=== PATIENT | male | born 1960 | race African-American/Black ===

== ENCOUNTER 2018-07-16 11:21 | Inpatient (IN) | payer MEDICARE, MEDICAID ==
[2018-07-16 12:36] LABS: #Basophils 0.1 thou/uL (0.0-0.2); #Eosinphils 0.1 thou/uL (0.0-0.7); #Lymphocytes 2.7 thou/uL (1.20-3.40); #Monocytes 0.5 thou/uL (0.11-0.59); %Basophils 0.8 % (0.0-1.0); %Eosinophils 0.8 % (0.0-10.0); %Lymphocytes 23.8 % (21.0-51.0); %Neutrophils 70.6 % (42.0-75.0); Hemoglobin 15.1 g/dL (14.0-18.0); Mean Corpuscular HGB CONC 32.2 g/dL (32.0-36.0); Mean Corpuscular Hemoglobin 26.9 pg (27.0-31.0); Mean Corpuscular Volume 83.5 fL (78.0-98.0); Mean Platelet Volume 8.6 fL (7.4-10.4); Platelet Count 210 thou/uL (130-400); RBC Distribution Width 13.1 % (11.5-14.5); Red Blood Cell (RBC) Count 5.62 mill/uL (4.70-6.10); White Blood Cell (WBC) Count 11.3 thou/uL (4.8-10.8)
[2018-07-16 12:37] LABS: Bilirubin Negative (Negative); Blood, Urine Negative (Negative); Clarity CLEAR (Clear); Glucose, Urine (Dipstick) >=1000 mg/dL (Negative); Leukocyte Negative (Negative); Nitrite Negative (Negative); Protein, Urine (Dipstick) Negative (Neg-Trace); Specific Gravity, Urine 1.027 (1.002-1.036)
--- NOTE | 2018-07-16 12:42 | RAD ---
Exam: Chest one view HISTORY:Emergency exam, hyperglycemia, dizziness Comparison: 01/31/2015 FINDINGS: Lungs: Mild interstitial prominence, perihilar regions, bilaterally Cardiac silhouette: Normal size Pulmonary vessels: Mild central prominence Pleural Spaces: No significant effusion Pneumothorax: None Metallic clips overlie the right chest. Osseous abnormalities: None of acuity. IMPRESSION: Bilateral perihilar interstitial prominence with mild enlargement of central pulmonary va sculature. This may represent fluid overload. Correlate clinically.
[2018-07-16 13:04] LABS: ALT (SGPT) 50 U/L (8-55); AST (SGOT) 30 U/L (5-34); Albumin 4.3 g/dL (3.5-5.0); Alkaline Phosphatase 178 U/L (40-150); Anion Gap 14 mmol/L (10-20); BUN (Urea Nitrogen) 23 mg/dL (8.4-25.7); Bilirubin, Total 0.4 mg/dL (0.2-1.2); CK (CPK) 338 U/L (30-200); Calc. Creatinine Clearance 0 mL/min (70-130); Calcium 10.2 mg/dL (7.8-10.44); Carbon Dioxide 26 mmol/L (22-29); Chloride 97 mmol/L (98-107); Estimated GFR-MDRD 41; Globulin 3.6 g/dL (2.4-3.5); Glucose 522 mg/dL (70-105); Lipase 43 U/L (8-78); Potassium 4.7 mmol/L (3.5-5.1); Protein, Total 7.9 g/dL (6.0-8.3); Sodium 132 mmol/L (136-145)
[2018-07-16] MEDS ORDERED: Aspirin Chewable 81 MG TAB ONE (15:31)
[2018-07-16 16:43] LABS: Troponin I Less than 0.010 ng/mL (< 0.028)
[2018-07-16 17:49] VITALS: BMI 32.5
[2018-07-16] MEDS ORDERED: Dextrose 5% in Water 1,000 ML IV PRN (18:58)
[2018-07-16] MEDS ORDERED: Dextrose 50% Abboject 50 ML SYRINGE SLOW IVP PRN (18:58)
[2018-07-16 19:17] LABS: Hemoglobin A1c 12.7 % (4.0-6.0)
[2018-07-16] MEDS ORDERED: Acetaminophen 325 MG TAB PO PRN (20:06)
[2018-07-16] MEDS ORDERED: Ondansetron PF 4 MG/2 ML Vial IVP PRN (20:06)
[2018-07-16] MEDS: tiZANidine HCl 4 MG TAB PO SCH (20:11)
[2018-07-16] MEDS: HYDROcodone/Acetaminophen 10/325 mg Tablet PO PRN (20:11)
[2018-07-16] MEDS: Gabapentin 300 MG CAP PO SCH (20:12)
[2018-07-16] MEDS: Atorvastatin Calcium 40 MG TAB PO SCH (20:12)
[2018-07-16 20:14] LABS: Troponin I Less than 0.010 ng/mL (< 0.028)
[2018-07-16] MEDS: Famotidine 20 MG TAB PO SCH (20:17)
[2018-07-16] MEDS: Nicotine 14 MG PATCH TD SCH (20:17)
[2018-07-16] MEDS: HumaLOG 300 UNITS/3 ML VIAL SC PRN (21:04)
--- NOTE | 2018-07-16 22:20 | HP ---
PRIMARY CARE PHYSICIAN: Dr. Flanagan with [facility]. CHIEF COMPLAINT: Lightheadedness, chest pain, and shortness of breath. HISTORY OF PRESENT ILLNESS: Mr. Jerez is a 58-year-old male with past medical history of hypertension, hyperlipidemia, and a newly diagnosed diabetes mellitus earlier this week. He states he was recently seen at [facility] ER on Friday due to the same symptoms. It was found at that time that the patient had a blood sugar of over 500 and was newly diagnosed with diabetes mellitus. He was started on metformin 500 mg b.i.d. and then later discharged home with close outpatient followup with his PCP, Dr. Flanagan. The patient states that he has not been able to see his PCP yet, however, his symptoms worsened over the last 24 hours. He states that he has some mild left-sided chest pain along with some mild shortness of breath. He states that this comes and goes and he has also noticed some lightheadedness, some urinary frequency, some diaphoresis, and some excessive thirst. He was seen at [facility] ER earlier today and was found to have a blood sugar of over 522. This had improved to 225 just with IV fluid normal saline. Creatinine was also noted to be elevated at 2.02. Troponins were obtained and found to be less than 0.010 x2. Urinalysis was also obtained and found urine glucose greater or equal to 1000, otherwise unremarkable. Beta-hydroxybutyrate was normal at 0.19. The patient's A1c was checked and found to be elevated at 12.7. He underwent a chest x-ray due to his dizziness and his shortness of breath, however, it showed bilateral perihilar interstitial prominence with mild enlargement of central pulmonary vasculature. This may represent fluid overload. Correlate clinically. The patient also reports some right arm pain and swelling that has been going on for the last several months. He was attacked by 2 Pit bulls that had caused significant injury to his right upper extremity and he had required surgery, which he had underwent his last surgery back in January. He states he usually takes gabapentin and [place] at home for his pain, however, this has been progressively worsening over the last 2 to 3 weeks. The patient reports a family history of heart failure and heart disease, however, the patient denies being worked up for this in the past. It was determined at this time the patient be admitted under observation, placed on telemetry and observed overnight, stress test and echocardiogram ordered along with right upper extremity Doppler to rule out PE. REVIEW OF SYSTEMS: All other systems reviewed and found to be negative unless mentioned in the HPI. PAST MEDICAL HISTORY: Significant for diabetes mellitus type 2, hyperlipidemia, and hypertension. PAST SURGICAL HISTORY: Right elbow, right hand and back. SOCIAL HISTORY: Denies any alcohol, tobacco, or illicit drug use. ALLERGIES: NONE. CURRENT HOME MEDICATIONS: 1. Amlodipine 10 mg p.o. daily. 2. Aspirin 81 mg daily. 3. Atorvastatin 40 mg oral daily. 4. Centrum multivitamin daily. 5. Chlorthalidone 25 mg daily. 6. Gabapentin 300 mg t.i.d. 7. Tizanidine 4 mg p.o. b.i.d. 8. [place] 10/325 mg p.o. t.i.d. p.r.n. pain. 9. Metformin 500 mg p.o. b.i.d. PHYSICAL EXAMINATION: VITAL SIGNS: Blood pressure 155/96, pulse 77, respirations 18, temp 97.4 degrees Fahrenheit, O2 saturations 100% on room air. GENERAL: The patient is awake, alert, and oriented x3. He is lying comfortably in bed and in no acute distress. HEENT: Atraumatic, normocephalic. Pupils are round and reactive to light. Extraocular muscles intact. Moist mucous membranes noted. NECK: Soft, supple. No JVD. Trachea midline. CARDIOVASCULAR: Positive S1 and S2. Regular rate and rhythm. No murmur auscultated. RESPIRATORY: Clear to auscultation bilaterally. No wheezes, rales, or rhonchi. ABDOMEN: Soft, nontender. Bowel sounds present. MUSCULOSKELETAL: Strength 5+ on the left, however, 4+ strength on the right. Moves all extremities equal. Chronic scarring from multiple wounds noted on right upper extremity. He has a finger splint on the right 5th digit. Swelling noted in the right upper extremity as well and tenderness to palpation noted throughout right upper extremity. NEUROLOGIC: Cranial nerves 2 through 12 grossly intact. No focal deficits noted. Speech intact and normal. Gait not assessed. SKIN: As above. Chronic healed wounds on his right upper extremity along with right lower extremity. No acute ulceration or rashes noted. PSYCHIATRIC: Good mood and affect. LABORATORY DATA: WBC 11.3, RBC 5.62, hemoglobin 15.1, platelet 210. Sodium 132, potassium 4.7, anion gap 14, BUN 23, creatinine 2.02, estimated GFR 41. Glucose on admission was 522, trending down to 225. Hemoglobin A1c 12.7. Creatine kinase 338. Troponin less than 0.010 x2. Urinalysis shows greater or equal to 1000 glucose, otherwise unremarkable. Beta-hydroxybutyrate normal at 0.19. DIAGNOSTIC IMAGING: Chest x-ray showed bilateral perihilar interstitial prominence with mild enlargement of central pulmonary vasculature, this may represent fluid overload. ASSESSMENT/PLAN: 1. Elevated blood sugars with a newly diagnosed diabetes mellitus and is uncontrolled with oral metformin. The patient's A1c noted to be elevated at 12.7. This is also unlikely secondary to being newly diagnosed and recently started on metformin. He will be started on a long-acting insulin including Lantus 10 mg q.a.m. in the morning, metformin will be held during his hospital visit and he will be started on insulin sliding scale with meals with frequent Accu-Cheks. The patient will likely require long-acting insulin along with metformin and possibly insulin sliding scale when he is discharged. Blood sugars noted to be over 500 on admission, however, are currently trended down nicely currently 225. 2. Chest pain and shortness of breath, the patient will be monitored on the telemonitor. At this time, a stress test and echocardiogram ordered for the morning. Troponin so far negative x2. He will be continued on his home medications at this time. 3. Chronic wounds to right upper extremity, the patient has a history of a dog attack in the past, he has noticed some worsening swelling and pain. Therefore, we will check a Doppler of his right upper extremity to rule out deep venous thrombosis. 4. History of hypertension. The patient will be continued on home regimen. 5. Hyperlipidemia. Continue on patient's home statin. 6. Gastrointestinal and deep venous thrombosis prophylaxis will be started. 7. Code status: Full code. DISPOSITION: Pending further workup and clinical findings. Job ID: [id number]
--- NOTE | 2018-07-16 22:26 | ULT ---
Right upper extremity venous duplex ultrasound including color and spectral Doppler imaging: HISTORY: Right upper extremity swelling. Extensive prior injury to arm with multiple prior surgeries. FINDINGS: The internal jugular, subclavian, axillary, brachial, and radial and ulnar veins are visualized and s how phasic flow with normal compressibility normal augmentation. The cephalic vein is visualized in the upper portion of the arm but is not seen below the level of the elbow. The visualized right basil ic vein appears unremarkable. In the region of the upper portion of the forearm, there is a somewhat oblong structure measuring 1 cm x 3.4 cm which contains some minimal flow within it. I'm not certain as to the exact etiology of this, conceivably it could represent a dilated venous varix with some thrombus within it, it could represent some other type of soft tissue mass. The anatomy is distorted in this region because of extensive prior surgery. In addition there is a focal 1.0 x 1.7 cm area of altered echogenicity in the region of focal palpabl e swelling of the medial portion of the upper arm. This could possibly represent a hematoma although some other type of soft tissue mass within muscle tissue is a consideration. IMPRESSION: No evidence for deep venous thrombosis. Visualized basilic and cephalic veins are patent and demonstr ate phasic flow. Abnormal structure in the upper portion of the forearm which has some vascular flow within it, I am n ot certain as to the etiology of this. It could possibly represent thrombus within a dilated venous varix or some other soft tissue structure. 1 x 1.7 cm diameter "mass" in the medial aspect of the lower portion of the upper arm above the level of the elbow accounting for the palpable finding. This appears to be within muscle tissue and could conceivably represent a hematoma or some other mass. Evaluation is difficult because of distortion of the anatomy from prior trauma and surgeries. Follow-up MRI examination of the humerus and forearm should be considered for further assessment of t hese regions with and without IV contrast.
[2018-07-17] MEDS: HYDROcodone/Acetaminophen 10/325 mg Tablet PO PRN ×2 (04:26→19:49)
[2018-07-17 05:09] LABS: #Basophils 0.1 thou/uL (0.0-0.2); #Eosinphils 0.2 thou/uL (0.0-0.7); #Lymphocytes 3.5 thou/uL (1.20-3.40); #Monocytes 0.6 thou/uL (0.11-0.59); #Neutrophils 6.4 thou/uL (1.40-6.50); %Basophils 0.7 % (0.0-1.0); %Lymphocytes 32.5 % (21.0-51.0); %Monocytes 5.4 % (0.0-10.0); %Neutrophils 59.5 % (42.0-75.0); Hemoglobin 13.9 g/dL (14.0-18.0); Mean Corpuscular HGB CONC 32.4 g/dL (32.0-36.0); Mean Corpuscular Hemoglobin 26.5 pg (27.0-31.0); Mean Platelet Volume 8.4 fL (7.4-10.4); Platelet Count 202 thou/uL (130-400); RBC Distribution Width 12.9 % (11.5-14.5); Red Blood Cell (RBC) Count 5.24 mill/uL (4.70-6.10); White Blood Cell (WBC) Count 10.8 thou/uL (4.8-10.8)
[2018-07-17 05:24] LABS: Anion Gap 12 mmol/L (10-20); BUN (Urea Nitrogen) 17 mg/dL (8.4-25.7); Calc. Creatinine Clearance 86 mL/min (70-130); Calcium 9.6 mg/dL (7.8-10.44); Carbon Dioxide 23 mmol/L (22-29); Chloride 102 mmol/L (98-107); Estimated GFR-MDRD 71; Glucose 276 mg/dL (70-105); Potassium 3.8 mmol/L (3.5-5.1); Sodium 133 mmol/L (136-145)
[2018-07-17] MEDS: HumaLOG 300 UNITS/3 ML VIAL SC PRN ×4 (06:12→21:36)
[2018-07-17] MEDS: tiZANidine HCl 4 MG TAB PO SCH ×2 (07:47→19:48)
[2018-07-17] MEDS: Gabapentin 300 MG CAP PO SCH ×3 (07:47→19:49)
[2018-07-17] MEDS: Amlodipine 10 MG TAB PO SCH (07:48)
[2018-07-17] MEDS: Enoxaparin Sodium 40 MG/0.4 ML SYRINGE SC SCH (07:48)
[2018-07-17] MEDS: Aspirin 81 mg Enteric Coated Tablet PO SCH (07:48)
[2018-07-17] MEDS: Insulin Glargine 10 UNITS in Pre-Filled Syringe SC SCH ×2 (08:55→11:29)
[2018-07-17] MEDS: Chlorthalidone 25 MG TAB PO SCH ×2 (08:55→11:30)
[2018-07-17] MEDS ORDERED: ADENOSINE 60 MG/20 ML VIAL ONE (09:40)
--- NOTE | 2018-07-17 11:31 | NM ---
EXAM: Nuclear medicine cardiac SPECT with EF and wall motion: HISTORY: Chest pain, hypertension, diabetes mellitus, dyslipidemia Adenosine sestamibi study is performed. Patient was injected with 29.3 mCi technetium 99m sestamibi intravenously for stress images and patie nt was injected with 10.3 mCi technetium 99m sestamibi intravenously for resting images. Multiple SPECT images are performed in the short axis, vertical long axis, and horizontal long axis. FINDINGS: No evidence for ischemia. Evidence for posterior wall scar. TID:1.16 LHR:0.31 EDV:126 mL EF:36% Wall motion:Global hypokinesis IMPRESSION: Evidence for posterior wall scar. No scan evidence for ischemia. Low ejection fraction at 36% Global hypokinesis
--- NOTE | 2018-07-17 13:52 | PRG ---
DATE OF SERVICE: 07/17/2018 CHIEF COMPLAINT: Lightheadedness, chest pain, and shortness of breath. HISTORY OF PRESENT ILLNESS: This is a 58-year-old male with history of hypertension, hyperlipidemia, and diabetes mellitus type 2, who came for lightheadedness and chest discomfort. SUBJECTIVE: The patient is seen and evaluated at bedside. He has no acute complaints. Per nurse, abnormal stress test. No other acute events. REVIEW OF SYSTEMS: All systems are reviewed and negative except for the ones mentioned above. PHYSICAL EXAMINATION: VITAL SIGNS: Blood pressure 142/94, pulse 80, respirations 16, oxygen saturation 99% on room air, and temperature 97.5 Fahrenheit. GENERAL: No acute distress. He is awake, alert, and oriented x3. HEAD AND NECK: Pupils are equally reactive to light. Extraocular muscles are intact. Mucous membranes are moist. Neck is supple. CARDIOVASCULAR: Rhythm and rate are regular. No audible murmurs, rubs, or gallops. PULMONARY: Clear to auscultation bilaterally. No wheezes, rhonchi, or crackles. ABDOMEN: Soft, nontender, and nondistended. Positive bowel sounds. EXTREMITIES: No edema. Pulses are symmetric. Range of motion is intact. Right upper extremity scars. SKIN: Scars as above. Normal moist. NEUROLOGIC: Cranial nerves 2 through 12 are grossly intact. Deep tendon reflexes are normoreflexic. Muscle tone is normal. Muscle strength is 5/5. LABORATORY DATA: Laboratory abnormalities: Sodium 133 and glucose 255. Hemoglobin A1c is 12.7. EKG is reviewed. Stress test result is reviewed. CURRENT MEDICATIONS: Reviewed. ASSESSMENT AND PLAN: 1. Abnormal stress test: Scar in the posterior wall, concerning for coronary artery disease. Presumptive previous troponin elevation, but negative x2 on this hospitalization. Possible old myocardial infarction. Cardiology has been consulted. Likely need left heart catheterization. Echocardiogram is pending. 2. Hyperglycemic syndrome: Resolved. Mild hyperglycemia. Continue sliding scale insulin. Hemoglobin A1c is 12.7%. 3. Chest pain: Resolved. Possible anginal type chest pain. See above. 4. Newly diagnosed chronic systolic and diastolic heart failure: Currently compensated. Cautious intravenous fluids. Cardiology consulted for evaluation. 5. Chronic right upper extremity scars. 6. Essential hypertension: Currently at goal. We will add beta blockers to his blood pressure regimen. 7. Hyperlipidemia: Continue statin. 8. Mild acute hyponatremia: Likely secondary to hyperglycemia. Continue cautious intravenous fluids. 9. Obesity with body mass index of 31: Lifestyle modification changes recommended. 10. Code status: Full code. 11. Core measures: Lovenox. 12. Disposition: Medical/Surgical Unit on telemetry. 13. Prognosis: Guarded. 14. Clinical status: Guarded. 15. Expected discharge: To be determined based on academic manager's recommendations. TOTAL TIME SPENT: 32 minutes. Job ID: [id number]
[2018-07-17] MEDS: Carvedilol 3.125 MG TAB PO SCH (17:07)
[2018-07-17] MEDS: Nicotine 14 MG PATCH TD SCH (19:47)
[2018-07-17] MEDS: Famotidine 20 MG TAB PO SCH (19:48)
[2018-07-17] MEDS: Atorvastatin Calcium 40 MG TAB PO SCH (19:48)
[2018-07-17] MEDS: Ondansetron ODT 4 MG TAB PO PRN (19:49)
[2018-07-17] MEDS ORDERED: Communication Order-Pharmacy FS SCH (20:45)
--- NOTE | 2018-07-18 00:55 | CON ---
DATE OF CONSULTATION: HISTORY: Dre Jerez is a pleasant 58-year-old black male who has recently diagnosed diabetes and has problems with blood sugar over 500. It also has been found that over the last 3-4 years that he has episodes of chest heaviness extending all the way across his chest. This will occur at rest and lasts for several minutes. He has episodes approximately 2 times per week. These never seem to be related to exertion. At times, he may have mild pleuritic pain with this. With this history, he underwent adenosine Cardiolite testing today. This revealed global hypokinesis with ejection fraction of 36%. He was found to have a posterior wall scar, but no evidence of ischemia. PAST MEDICAL HISTORY: Diabetes, hypercholesterolemia, hypertension. Dog bite with rhabdomyolysis and acute kidney injury. MEDICATIONS: 1. Amlodipine 10 daily. 2. Aspirin 81 daily. 3. Atorvastatin 40 daily. 4. Multivitamin daily. 5. Chlorthalidone 25 daily. 6. Gabapentin 300 mg t.i.d. 7. Tizanidine 4 mg b.i.d. 8. [place] p.r.n. 9. Metformin 500 mg b.i.d.. ALLERGIES: NONE. SOCIAL HISTORY: Smoked 1/2 pack per day, but stopped in March. He does not drink. PAST SURGICAL HISTORY: Include multiple right arm operations after a dog attack. FAMILY HISTORY: Negative for coronary artery disease. REVIEW OF SYSTEMS: A 12-point review of systems is unremarkable. PHYSICAL EXAMINATION: VITAL SIGNS: Blood pressure 138/102, pulse of 87. HEENT: PERRL. NECK: Supple. CHEST: Clear. CARDIAC: S1 and S2 normal without any S3, S4, or murmurs. ABDOMEN: Normal bowel sounds without tenderness or organomegaly. EXTREMITIES: Revealed no clubbing, cyanosis, or edema. He does have significant scarring of his right arm as well as some contractures of his right fingers. NEUROLOGIC: Grossly intact. SKIN: Warm and dry. LABORATORY DATA: EKG reveals probable ectopic atrial rhythm with occasional PVC. There also is evidence of possible inferior infarction. Cardiac enzymes are unremarkable. Sodium 138, potassium 3.8, chloride 102, carbon dioxide 23, BUN 17, creatinine 1.27. On admission, his creatinine was 2.02. Alkaline phosphatase 178. CK 338. Glucose on admission was greater than 550. IMPRESSION: 1. Abnormal Cardiolite with fixed inferior wall defect, but no evidence of ischemia. Also on EKG, he has changes consistent with inferior infarction. 2. Resting chest heaviness. 3. Left ventricular dysfunction with ejection fraction of 36% on Cardiolite. 4. History of acute kidney injury with a creatinine of 2.02 at the time of admission. It also is of note that in 2014 when he was admitted with dog bite that he had rhabdomyolysis and his creatinine went up to 3.64. 5. Hypertension, poorly controlled. 6. Diabetes, poorly controlled. 7. Hyperlipidemia. 8. Former smoker. PLAN: With possible coronary artery disease, I would discontinue the nicotine patch. It was recommended that he undergo cardiac catheterization. Risks of this were discussed including , myocardial infarction, CVA, transfusion, limb loss, renal loss, allergic reaction to the dye, vascular injury, kidney damage, etc. We discussed stenting and additional risk of , myocardial infarction, emergent CABG, restenosis, stent thrombosis, vessel perforation, etc. He does not have any upcoming surgeries. Never had gastrointestinal bleeding or stroke. Overall it is recommended that a drug-eluting stent be placed if needed. Echocardiogram will also be performed to further evaluate ejection fraction of 36% seen on Cardiolite scan. Job ID: [id number] [id number]
[2018-07-18] MEDS: Insulin Glargine 10 UNITS in Pre-Filled Syringe SC SCH (05:57)
[2018-07-18] MEDS: Chlorthalidone 25 MG TAB PO SCH (05:57)
[2018-07-18] MEDS: Enoxaparin Sodium 40 MG/0.4 ML SYRINGE SC SCH (05:57)
[2018-07-18] MEDS: Amlodipine 10 MG TAB PO SCH (05:59)
[2018-07-18] MEDS: Aspirin 81 mg Enteric Coated Tablet PO SCH (05:59)
[2018-07-18] MEDS: Gabapentin 300 MG CAP PO SCH ×4 (05:59→20:14)
[2018-07-18] MEDS: tiZANidine HCl 4 MG TAB PO SCH ×2 (05:59→20:14)
[2018-07-18] MEDS: Carvedilol 3.125 MG TAB PO SCH ×2 (05:59→16:47)
[2018-07-18 07:25] LABS: Anion Gap 14 mmol/L (10-20); BUN (Urea Nitrogen) 19 mg/dL (8.4-25.7); Calc. Creatinine Clearance 71 mL/min (70-130); Carbon Dioxide 23 mmol/L (22-29); Cardiac Risk 3.9 (Less than 4.5); Chloride 100 mmol/L (98-107); Cholesterol 125 mg/dl (< 200 Desired); Estimated GFR-MDRD 57; Glucose 320 mg/dL (70-105); HDL Cholesterol 32 mg/dL (>60 Neg Risk); LDL Cholesterol, Calculated 70 mg/dL; Potassium 4.6 mmol/L (3.5-5.1); Sodium 132 mmol/L (136-145); Triglycerides 114 mg/dL (Less than 150)
[2018-07-18] MEDS: Ondansetron ODT 4 MG TAB PO PRN ×2 (07:47→16:47)
[2018-07-18] MEDS: HYDROcodone/Acetaminophen 10/325 mg Tablet PO PRN ×2 (07:47→16:47)
[2018-07-18 07:51] LABS: #Basophils 0.1 thou/uL (0.0-0.2); #Eosinphils 0.2 thou/uL (0.0-0.7); #Lymphocytes 3.3 thou/uL (1.20-3.40); #Monocytes 0.6 thou/uL (0.11-0.59); #Neutrophils 5.5 thou/uL (1.40-6.50); %Basophils 0.6 % (0.0-1.0); %Lymphocytes 34.6 % (21.0-51.0); %Monocytes 6.1 % (0.0-10.0); %Neutrophils 56.7 % (42.0-75.0); Hemoglobin 15.7 g/dL (14.0-18.0); Mean Corpuscular HGB CONC 32.3 g/dL (32.0-36.0); Mean Corpuscular Hemoglobin 26.2 pg (27.0-31.0); Mean Corpuscular Volume 81.1 fL (78.0-98.0); Mean Platelet Volume 8.8 fL (7.4-10.4); Platelet Count 214 thou/uL (130-400); RBC Distribution Width 13.3 % (11.5-14.5); White Blood Cell (WBC) Count 9.6 thou/uL (4.8-10.8)
[2018-07-18] MEDS ORDERED: Insulin Glargine 15 UNITS in Pre-Filled Syringe 1 EACH SC SCH (14:33)
--- NOTE | 2018-07-18 15:07 | PRG ---
DATE OF SERVICE: 07/18/2018 CHIEF COMPLAINT: Lightheadedness, chest pain, shortness of breath. HISTORY OF PRESENT ILLNESS: This is a 58-year-old male with a history of hypertension, hyperlipidemia, diabetes mellitus type 2, who came to the emergency room for lightheadedness and chest discomfort. SUBJECTIVE: The patient is seen and evaluated at bedside. He has no chest pain. He denies any shortness of breath. He is undergoing a left heart catheterization today. Per nurse, no other acute events. REVIEW OF SYSTEMS: All systems are reviewed and negative except for the ones mentioned above. PHYSICAL EXAMINATION: VITAL SIGNS: Blood pressure 129/85, pulse 68, respirations 16, oxygen saturation 98% on room air, temperature 97.9 Fahrenheit. GENERAL: He appears in no distress. Awake, alert, and oriented x3. HEAD AND NECK: Pupils are equal and reactive to light. Extraocular muscles are intact. Mucous membranes are moist. Neck is supple. CARDIOVASCULAR: Rhythm and rate are regular. No audible murmurs, rubs, or gallops. PULMONARY: Clear to auscultation bilaterally. No wheezes, rhonchi, or crackles. ABDOMEN: Soft, nontender, nondistended, positive bowel sounds. EXTREMITIES: No palpable edema. Pulses symmetric. Range of motion is intact. Right upper extremity, deep scars. SKIN: Scars as above. Normal moist. NEUROLOGIC: Cranial nerves 2 through 12 are grossly intact. Deep tendon reflexes are normoreflexic. LABORATORY DATA: Laboratory abnormalities: Creatinine 1.53. Sodium 132. Glucose 293. CURRENT MEDICATIONS: Reviewed. ASSESSMENT AND PLAN: 1. Abnormal stress test: Echocardiogram confirming ejection fraction of 30% to 35%. The patient has undergone left heart catheterization, suspicious for severe coronary artery disease. Cardiology is following. 2. Hyperglycemic syndrome: Continue titrating insulin. I increased the Lantus to 15 units per day. 3. Chest pain: Resolved. See above. Left heart catheterization today. 4. Newly diagnosed chronic systolic and diastolic heart failure: Currently compensated. 5. Cardiomyopathy: Suspected ischemic. Left heart catheterization today. 6. Essential hypertension: Currently at goal. 7. Chronic right upper extremity scars. 8. Chronic hyperlipidemia: Continue statins. 9. Mild acute hyponatremia: Sodium stable. Monitor. 10. Acute kidney injury: Suspect prerenal. Creatinine was improving, but slightly worsened today. Continue to monitor closely. 11. Obesity with BMI 31: Lifestyle modification changes recommended. CODE STATUS: Full code. CORE MEASURES: Lovenox. DISPOSITION: Medical/surgical unit on telemetry. Change to inpatient status. PROGNOSIS: Guarded. CLINICAL STATUS: Guarded. EXPECTED DISCHARGE: To be determined based on left heart catheterization findings. TOTAL TIME SPENT: 30 minutes. Job ID: [id number]
[2018-07-18] MEDS: HumaLOG 300 UNITS/3 ML VIAL SC PRN ×2 (16:50→21:28)
[2018-07-18] MEDS: Atorvastatin Calcium 40 MG TAB PO SCH (20:14)
[2018-07-18] MEDS: Famotidine 20 MG TAB PO SCH (20:14)
[2018-07-18] MEDS ORDERED: Docusate 100 MG CAP PO PRN (20:54)
[2018-07-18] MEDS ORDERED: Mag-Al 1200 mg/1200 mg/30 ML UDCUP PO PRN (20:54)
[2018-07-18] MEDS: Senokot S 8.6-50 MG TAB PO SCH (21:27)
[2018-07-18] MEDS ORDERED: Nitroglycerin 0.4 MG TAB (25 Tab Bottle) SL PRN (22:18)
[2018-07-19] MEDS: HumaLOG 300 UNITS/3 ML VIAL SC PRN ×4 (06:01→21:17)
[2018-07-19 06:30] LABS: Hemoglobin 14.4 g/dL (14.0-18.0); Mean Corpuscular HGB CONC 33.2 g/dL (32.0-36.0); Mean Corpuscular Hemoglobin 27.2 pg (27.0-31.0); Mean Corpuscular Volume 81.9 fL (78.0-98.0); Mean Platelet Volume 8.7 fL (7.4-10.4); Platelet Count 199 thou/uL (130-400); White Blood Cell (WBC) Count 8.3 thou/uL (4.8-10.8)
[2018-07-19 06:46] LABS: Anion Gap 13 mmol/L (10-20); BUN (Urea Nitrogen) 24 mg/dL (8.4-25.7); Calc. Creatinine Clearance 77 mL/min (70-130); Calcium 9.5 mg/dL (7.8-10.44); Carbon Dioxide 23 mmol/L (22-29); Chloride 100 mmol/L (98-107); Estimated GFR-MDRD 63; Glucose 360 mg/dL (70-105); Magnesium 2.4 mg/dL (1.6-2.6); Potassium 4.2 mmol/L (3.5-5.1); Sodium 132 mmol/L (136-145)
[2018-07-19] MEDS ORDERED: Carvedilol 6.25 MG TAB PO SCH (08:00)
[2018-07-19] MEDS: Aspirin 81 mg Enteric Coated Tablet PO SCH (08:59)
[2018-07-19] MEDS: Gabapentin 300 MG CAP PO SCH ×3 (09:00→20:05)
[2018-07-19] MEDS: Enoxaparin Sodium 40 MG/0.4 ML SYRINGE SC SCH (09:00)
[2018-07-19] MEDS ORDERED: Amlodipine 5 MG TAB PO SCH (09:00)
[2018-07-19] MEDS: Senokot S 8.6-50 MG TAB PO SCH ×2 (09:00→20:06)
[2018-07-19] MEDS: Ketoconazole 2% Cream 15 gm Tube TOP SCH (09:01)
[2018-07-19] MEDS: tiZANidine HCl 4 MG TAB PO SCH ×2 (09:01→20:05)
--- NOTE | 2018-07-19 13:43 | PRG ---
DATE OF SERVICE: 07/19/2018 CHIEF COMPLAINT: Lightheadedness, chest pain, shortness of breath. HISTORY OF PRESENT ILLNESS: A 58-year-old male with history of hypertension, hyperlipidemia, diabetes mellitus type 2, who came to the emergency department for lightheadedness and chest discomfort. SUBJECTIVE: The patient seen and evaluated at bedside. He has no new complaints. Per nurse, no acute events overnight. REVIEW OF SYSTEMS: All systems are reviewed and negative except for the ones mentioned above. PHYSICAL EXAMINATION: VITAL SIGNS: Blood pressure 130/88, pulse 78, respirations 18, oxygen saturation 93% on room air, temperature 98 Fahrenheit. GENERAL: No distress. Awake, alert, oriented x3. HEAD AND NECK: Pupils are equal, reactive to light. Extraocular muscles are intact. Mucous membranes are moist. NECK: Supple. CARDIOVASCULAR: Rhythm and rate are regular. No audible murmurs, rubs, or gallops. PULMONARY: Clear to auscultation bilaterally. No wheezes, rhonchi, or crackles. ABDOMEN: Soft, nontender, nondistended. Positive bowel sounds. EXTREMITIES: No palpable edema. Pulses are symmetric. Range of motion is intact. Right upper extremity, deep scars. SKIN: Scars as above. Normal moist. NEUROLOGIC: Cranial nerves 2 through 12 are grossly intact. Deep tendon reflexes are normoreflexic. LABORATORY DATA: Glucose 360, creatinine is 1.4, sodium 132. CBC normal. CURRENT MEDICATIONS: Reviewed. ASSESSMENT AND PLAN: 1. Abnormal stress test for left heart catheterization on Friday per cardiology's recommendation. 2. Hyperglycemic syndrome. Continue titrating Lantus with caution and sliding scale. 3. Chest pain, resolved. See above. 4. Newly diagnosed chronic systolic and diastolic heart failure, currently compensated. 5. Cardiomyopathy, suspect ischemic. Left heart catheterization on Friday. 6. Essential hypertension, currently at goal. 7. Chronic right upper extremity scars. 8. Chronic hyperlipidemia. Continue current treatment. 9. Mild acute hyponatremia, stable sodium level. a. Continue to monitor. 10. Acute kidney injury, prerenal, improving. Closely monitoring after left heart catheterization. 11. Obesity with BMI 31. Lifestyle modification changes recommended. CODE STATUS: Full code. CORE MEASURE: Lovenox. DISPOSITION: Medical/surgical unit on telemetry. PROGNOSIS: Guarded. CLINICAL STATUS: Guarded. EXPECTED DISCHARGE: To be determined based on left heart catheterization findings. TOTAL TIME SPENT: 28 minutes. Job ID: [id number]
[2018-07-19] MEDS ORDERED: Sodium Chloride 0.9% 1,000 ML IV SCH (16:30)
[2018-07-19] MEDS: Carvedilol 6.25 MG TAB PO SCH (16:42)
[2018-07-19] MEDS: Famotidine 20 MG TAB PO SCH (20:06)
[2018-07-19] MEDS: Atorvastatin Calcium 40 MG TAB PO SCH (20:07)
[2018-07-20] MEDS ORDERED: Sodium Chloride 0.9% 1,000 ML IV SCH ×2 (06:00→07:50)
[2018-07-20] MEDS: tiZANidine HCl 4 MG TAB PO SCH ×2 (06:03→21:20)
[2018-07-20] MEDS: Gabapentin 300 MG CAP PO SCH ×3 (06:03→21:20)
[2018-07-20] MEDS: Carvedilol 6.25 MG TAB PO SCH ×2 (06:03→17:25)
[2018-07-20] MEDS: Senokot S 8.6-50 MG TAB PO SCH ×2 (06:03→21:21)
[2018-07-20] MEDS: Aspirin 81 mg Enteric Coated Tablet PO SCH (06:04)
[2018-07-20 06:07] LABS: Anion Gap 13 mmol/L (10-20); BUN (Urea Nitrogen) 26 mg/dL (8.4-25.7); Calc. Creatinine Clearance 69 mL/min (70-130); Calcium 9.5 mg/dL (7.8-10.44); Carbon Dioxide 22 mmol/L (22-29); Chloride 104 mmol/L (98-107); Estimated GFR-MDRD 55; Glucose 296 mg/dL (70-105); Sodium 135 mmol/L (136-145)
[2018-07-20] MEDS ORDERED: Heparin 10,000 UNITS/1 ML VIAL ONE (06:32)
[2018-07-20] MEDS ORDERED: Midazolam HCl 2 mg/2 ml Vial ONE (07:07)
[2018-07-20] MEDS ORDERED: Fentanyl 100 MCG/2 ML VIAL ONE (07:07)
[2018-07-20] MEDS ORDERED: Protamine Sulfate 50 MG/5 ML VIAL ONE (07:31)
[2018-07-20] MEDS ORDERED: Sodium Chloride 0.9% 200 ML IV PRN (07:47)
[2018-07-20] MEDS ORDERED: Acetaminophen/Codeine 30-300mg Tablet PO PRN ×2 (07:47)
[2018-07-20] MEDS ORDERED: Nitroglycerin 0.4 MG TAB (25 Tab Bottle) SL PRN (07:47)
[2018-07-20] MEDS: Insulin Glargine 18 UNITS in Pre-Filled Syringe 1 EACH SC SCH (08:44)
[2018-07-20] MEDS: Ketoconazole 2% Cream 15 gm Tube TOP SCH (08:44)
[2018-07-20] MEDS: HumaLOG 300 UNITS/3 ML VIAL SC PRN ×3 (10:09→21:21)
[2018-07-20] MEDS ORDERED: Iopamidol 370 76% 100 ML VIAL ONE (12:02)
[2018-07-20] MEDS ORDERED: Iopamidol 370 76% 50 ML VIAL FS ONE (12:02)
--- NOTE | 2018-07-20 13:03 | PDOC.PN ---
- Subjective Encounter Start Date: 07/20/18 Encounter Start Time: 07:20 CHIEF COMPLAINT: Lightheadedness, chest pain, and shortness of breath. HISTORY OF PRESENT ILLNESS: This is a 58-year-old male with history of hypertension, hyperlipidemia, and diabetes mellitus type 2, who came for lightheadedness and chest discomfort. SUBJECTIVE: The patient is seen and evaluated at bedside. Status post [facility] showing multivessel disease. He has no acute complaints. Per nurse, no other acute events. REVIEW OF SYSTEMS: All systems are reviewed and negative except for the ones mentioned above. - Objective Resuscitation Status - Order Detail: 07/16/18 20:06 Resuscitation Status Routine Co-Sign Provider: Resuscitation Status: FULL: Full Resuscitation MAR Reviewed: Yes Vital Signs & Weight: Vital Signs (12 hours) Temp Pulse Resp BP BP Pulse Ox 07/20/18 12:11 97.9 F 75 16 139/75 98 07/20/18 07:48 98 07/20/18 03:44 97.6 F 74 19 127/86 98 Weight Weight 207 lb 8 oz I&O: 07/19/18 07/20/18 07/21/18 06:59 06:59 06:59 Intake Total 900 2321 240 Output Total 350 300 400 Balance 550 2021 -160 Result Diagrams: 07/19/18 05:58 07/20/18 05:26 Additional Labs: Accuchecks 07/20/18 07/20/18 07/19/18 10:07 06:09 20:37 POC Glucose 250 H 271 H 368 H 07/19/18 17:15 POC Glucose 339 H Radiology Reviewed by me: Yes EKG Reviewed by me: Yes Phys Exam - Physical Examination Constitutional: NAD HEENT: PERRLA, moist MMs, oral pharynx no lesions Neck: no nodes, no JVD, supple Respiratory: no wheezing, no rales, no rhonchi, clear to auscultation bilateral Cardiovascular: RRR, no significant murmur, no rub Gastrointestinal: soft, non-tender, no distention, positive bowel sounds Musculoskeletal: no edema, pulses present RUE deep scars Neurological: non-focal, normal sensation, moves all 4 limbs Psychiatric: normal affect, A&O x 3 Skin: no rash, normal turgor, cap refill <2 seconds Dx/Plan (1) Multi-vessel coronary artery stenosis Code(s): I25.10 - ATHSCL HEART DISEASE OF [place] CORONARY ARTERY W/O ANG PCTRS Status: Acute Plan: New diagnosed. Status post LHC. Run Boat Operator consulted CT surgeon. (2) Abnormal cardiovascular stress test Status: Acute Plan: See above (3) Uncontrolled diabetes mellitus Code(s): E11.65 - TYPE 2 DIABETES MELLITUS WITH HYPERGLYCEMIA Status: Acute Qualifiers: Diabetes mellitus type: type 2 Glycemic state: with hyperglycemia Qualified Code(s): E11.65 - Type 2 diabetes mellitus with hyperglycemia Plan: Continue titrating insulin to goal. (4) Chest pain due to CAD Code(s): R07.9 - CHEST PAIN, UNSPECIFIED; I25.10 - ATHSCL HEART DISEASE OF [place] CORONARY ARTERY W/O ANG PCTRS Status: Acute Plan: Resolved (5) Chronic combined systolic and diastolic CHF, NYHA class 2 Code(s): I50.42 - CHRONIC COMBINED SYSTOLIC AND DIASTOLIC HRT FAIL Status: Chronic Plan: Compensated (6) Ischemic cardiomyopathy Code(s): I25.5 - ISCHEMIC CARDIOMYOPATHY Status: Chronic (7) Essential hypertension Code(s): I10 - ESSENTIAL (PRIMARY) HYPERTENSION Status: Chronic Plan: At goal (8) Dyslipidemia Code(s): E78.5 - HYPERLIPIDEMIA, UNSPECIFIED Status: Chronic Plan: Continue statin (9) Hyponatremia Code(s): E87.1 - HYPO-OSMOLALITY AND HYPONATREMIA Status: Acute Plan: resolved (10) ASHLEY (acute kidney injury) Code(s): N17.9 - ACUTE KIDNEY FAILURE, UNSPECIFIED Status: Acute Plan: Prerenal. Creatinine stable. Monitor closely after LHC. (11) Obesity (BMI 30.0-34.9) Code(s): E66.9 - OBESITY, UNSPECIFIED Status: Chronic Plan: Lifestyle changes recommended - Plan cont current plan of care CODE; FULL CORE; LOVENOX DISP; TELEMETRY PROG; GUARDED CLINICAL STATUS; GUARDED EXPECTED DISCHARGE; TO BE DETERMINED TOTAL TIME SPENT; 25 MINUTES DATE OF SERVICE; 07/20/2018
[2018-07-20] MEDS: Famotidine 20 MG TAB PO SCH (21:21)
[2018-07-20] MEDS: Atorvastatin Calcium 40 MG TAB PO SCH (21:21)
[2018-07-21 05:15] LABS: Anion Gap 12 mmol/L (10-20); BUN (Urea Nitrogen) 17 mg/dL (8.4-25.7); Calc. Creatinine Clearance 82 mL/min (70-130); Calcium 9.6 mg/dL (7.8-10.44); Carbon Dioxide 22 mmol/L (22-29); Chloride 104 mmol/L (98-107); Estimated GFR-MDRD 68; Glucose 258 mg/dL (70-105); Sodium 134 mmol/L (136-145)
[2018-07-21] MEDS: HumaLOG 300 UNITS/3 ML VIAL SC PRN (06:07)
[2018-07-21] MEDS ORDERED: Communication Order-Pharmacy FS SCH (07:16)
[2018-07-21] MEDS ORDERED: CABG-Vancomycin 1 GM in Premix Bag 1 BAG IVPB SCH (07:30)
[2018-07-21] MEDS ORDERED: Midazolam HCl 5 mg/5 ml Vial ONE (07:30)
[2018-07-21] MEDS ORDERED: Fentanyl 100 MCG/2 ML VIAL ONE (07:30)
[2018-07-21] MEDS ORDERED: Midazolam HCl 2 mg/2 ml Vial ONE (07:30)
[2018-07-21] MEDS ORDERED: Dexmedetomidine 200 MCG/2 ML VIAL ONE (07:31)
[2018-07-21] MEDS ORDERED: Vecuronium 10 MG VIAL ONE ×2 (07:31→14:15)
[2018-07-21] MEDS ORDERED: Heparin 10,000 UNITS/1 ML VIAL 30,000 UNITS in Sodium Chloride 0.9% 1,000 ML FS SCH (08:15)
[2018-07-21] MEDS ORDERED: Albumin 5% 500 ML ONE (08:15)
[2018-07-21] MEDS ORDERED: Sodium Chloride 0.9% 10 ML ONE (08:41)
[2018-07-21] MEDS ORDERED: Sodium Chloride 0.9% 100 ML ONE (08:41)
[2018-07-21] MEDS ORDERED: Insulin Regular 300 UNITS/3 ML VIAL ONE (09:16)
[2018-07-21] MEDS ORDERED: Phenylephrine HCL 10 MG/ML VIAL ONE (10:43)
[2018-07-21] MEDS ORDERED: PHENYLEPHRINE-NS 100 MCG/ML 10 ML SYRINGE ONE ×2 (10:44→14:15)
[2018-07-21] MEDS ORDERED: Nitroglycerin 50 MG/250 ML BOT 250 ML IVPB PRN (13:23)
[2018-07-21] MEDS ORDERED: Norepinephrine 8 MG/0.9% NS 250 ML IVPB PRN (13:23)
[2018-07-21] MEDS ORDERED: HYDROcodone/Acetaminophen 5/325 mg Tablet PO PRN (13:23)
[2018-07-21] MEDS ORDERED: HEXTEND 6% LR 500ML 500 ML IVPB PRN (13:23)
[2018-07-21] MEDS ORDERED: Post-Op Insulin Drip Protocol IVPB ONE (13:23)
[2018-07-21] MEDS ORDERED: Promethazine HCl 25 MG/ML VIAL IM PRN (13:23)
[2018-07-21] MEDS ORDERED: hydrALAZINE 20 MG/ML VIAL SLOW IVP PRN (13:23)
[2018-07-21] MEDS ORDERED: Ondansetron PF 4 MG/2 ML Vial IVP PRN (13:23)
[2018-07-21] MEDS ORDERED: Acetaminophen 325 MG TAB PO PRN (13:23)
[2018-07-21] MEDS ORDERED: Bisacodyl 5 MG TAB PO PRN (13:23)
[2018-07-21] MEDS ORDERED: Potassium Chloride 20 MEQ/100 ML PREMIX BAG IVPB PRN (13:23)
[2018-07-21] MEDS ORDERED: Fentanyl 100 MCG/2 ML VIAL SLOW IVP PRN (13:23)
[2018-07-21] MEDS ORDERED: Guaifenesin DM 100-10/5 ML UDCUP PO PRN (13:23)
[2018-07-21] MEDS ORDERED: Mag-Al 1200 mg/1200 mg/30 ML UDCUP PO PRN (13:23)
[2018-07-21] MEDS ORDERED: Bisacodyl 10 MG SUPP PR PRN (13:23)
[2018-07-21] MEDS: Aspirin 81 mg Enteric Coated Tablet PO SCH (13:54)
[2018-07-21] MEDS: tiZANidine HCl 4 MG TAB PO SCH ×2 (13:55→20:19)
[2018-07-21] MEDS: Gabapentin 300 MG CAP PO SCH ×3 (13:55→20:19)
[2018-07-21] MEDS ORDERED: Heparin 5,000 UNITS/ML VIAL ONE (14:15)
[2018-07-21] MEDS ORDERED: Glycopyrrolate 0.2 MG/ML 5 ML SYRINGE ONE (14:15)
[2018-07-21] MEDS ORDERED: Sodium Bicarb 50 MEQ/50 ML VIAL ONE (14:15)
[2018-07-21] MEDS ORDERED: Nitroglycerin 50 MG/250 ML BOT ONE (14:15)
[2018-07-21] MEDS ORDERED: Norepinephrine 4 MG/4 ML VIAL ONE (14:15)
[2018-07-21] MEDS ORDERED: Heparin 30,000 units/30 ml VIAL ONE (14:15)
[2018-07-21] MEDS ORDERED: Ketorolac Tromethamine 30 MG/ML VIAL ONE (14:15)
[2018-07-21] MEDS ORDERED: Potassium Chloride 60 MEQ/30 ML VIAL ONE (14:15)
[2018-07-21] MEDS ORDERED: Ondansetron PF 4 MG/2 ML Vial ONE (14:15)
[2018-07-21] MEDS ORDERED: Protamine Sulfate 250 MG/25 ML VIAL ONE (14:15)
[2018-07-21] MEDS ORDERED: Calcium Chloride 1 GM/10 ML Abboject SYRINGE ONE (14:15)
[2018-07-21] MEDS ORDERED: Lidocaine 2% PF 100 mg/5 ml Syringe ONE (14:15)
[2018-07-21] MEDS ORDERED: Mannitol 12.5 GM/50 ML ONE (14:15)
[2018-07-21] MEDS ORDERED: Magnesium 5 GM/10 ML VIAL ONE (14:15)
[2018-07-21] MEDS ORDERED: Cardioplegic Soln 1,000 ML BAG ONE (14:15)
[2018-07-21] MEDS ORDERED: Thrombin 5000 UNITS/5 ML VIAL ONE (14:15)
[2018-07-21] MEDS ORDERED: Aminocaproic Acid 5 GM/20 ML VIAL ONE (14:15)
[2018-07-21] MEDS ORDERED: Papaverine 60 MG/2 ML VIAL ONE (14:15)
[2018-07-21 14:30] LABS: #Basophils 0.1 thou/uL (0.0-0.2); #Eosinphils 0.1 thou/uL (0.0-0.7); #Lymphocytes 2.2 thou/uL (1.20-3.40); #Monocytes 1.1 thou/uL (0.11-0.59); #Neutrophils 13.4 thou/uL (1.40-6.50); %Basophils 0.5 % (0.0-1.0); %Eosinophils 0.5 % (0.0-10.0); %Lymphocytes 13.1 % (21.0-51.0); %Monocytes 6.6 % (0.0-10.0); %Neutrophils 79.3 % (42.0-75.0); Hemoglobin 11.4 g/dL (14.0-18.0); Mean Corpuscular HGB CONC 31.5 g/dL (32.0-36.0); Mean Corpuscular Hemoglobin 26.6 pg (27.0-31.0); Mean Corpuscular Volume 84.2 fL (78.0-98.0); Mean Platelet Volume 8.5 fL (7.4-10.4); Platelet Count 143 thou/uL (130-400); RBC Distribution Width 13.1 % (11.5-14.5); White Blood Cell (WBC) Count 16.9 thou/uL (4.8-10.8)
[2018-07-21] MEDS: Sodium Chloride 0.9% 1,000 ML IV SCH (14:30)
[2018-07-21 14:36] LABS: INR-International Normal Ratio 1.2; PTT 28.6 SEC (22.9-36.1); Prothrombin Time 15.6 SEC (12.0-14.7)
[2018-07-21 15:04] LABS: Anion Gap 11 mmol/L (10-20); BUN (Urea Nitrogen) 14 mg/dL (8.4-25.7); Calc. Creatinine Clearance 91 mL/min (70-130); Calcium 9.2 mg/dL (7.8-10.44); Carbon Dioxide 23 mmol/L (22-29); Chloride 109 mmol/L (98-107); Estimated GFR-MDRD 76; Glucose 106 mg/dL (70-105); Potassium 4.3 mmol/L (3.5-5.1); Sodium 139 mmol/L (136-145)
--- NOTE | 2018-07-21 15:13 | PDOC.PN ---
- Subjective Encounter Start Date: 07/21/18 Encounter Start Time: 15:00 -: non-verbal CC; CHEST PAIN SUBJECTIVE; PATIENT SEEN AND EVAL IN THE POSTOP PERIOD. HE IS UNDER THE EFFECT OF ANESTHETICS. PER NURSE, NO IMMEDIATE COMPLICATIONS. ROS; UNABLE TO OBTAIN DUE LETHARGY - Objective Resuscitation Status - Order Detail: 07/16/18 20:06 Resuscitation Status Routine Co-Sign Provider: Resuscitation Status: FULL: Full Resuscitation MAR Reviewed: Yes Vital Signs & Weight: Vital Signs (12 hours) Temp Pulse Resp BP Pulse Ox 07/21/18 14:17 98 07/21/18 14:00 97.6 F 07/21/18 04:41 97.6 F 70 18 143/91 H 97 Weight Weight 207 lb 8 oz Most Recent Monitor Data Heart Rate from ECG 76 NIBP 118/69 NIBP BP-Mean 85 Respiration from ECG 18 SpO2 95 I&O: 07/20/18 07/21/18 07/22/18 06:59 06:59 06:59 Intake Total 2321 1470 1400 Output Total 300 400 360 Balance 2020 1070 1040 Result Diagrams: 07/21/18 14:18 07/21/18 14:18 Additional Labs: Accuchecks 07/21/18 07/21/18 07/21/18 14:24 13:40 12:15 POC Glucose 105 91 125 H 07/21/18 07/21/18 07/21/18 12:03 11:44 11:05 POC Glucose 124 H 133 H 162 H 07/21/18 07/21/18 07/20/18 09:28 08:29 20:49 POC Glucose 257 H 226 H 314 H 07/20/18 16:54 POC Glucose 371 H Radiology Reviewed by me: Yes EKG Reviewed by me: Yes Phys Exam - Physical Examination HEENT: PERRLA, moist MMs, sclera anicteric Neck: no nodes, no JVD, supple COARSE BREATH SOUNDS BILATERALLY. MILD T[place]NEA Cardiovascular: RRR, no significant murmur Gastrointestinal: soft, non-tender, no distention Musculoskeletal: no edema, pulses present LIMITED DUE TO LETHARGY Skin: normal turgor, cap refill <2 seconds Deviation from normal: SURGICAL SITE COVERED Dx/Plan (1) S/P CABG (coronary artery bypass graft) Code(s): Z95.1 - PRESENCE OF AORTOCORONARY BYPASS GRAFT Status: Acute Plan: IMMEDIATE POST OP PERIOD. CONTINUE PROTOCOL (2) Multi-vessel coronary artery stenosis Code(s): I25.10 - ATHSCL HEART DISEASE OF [place] CORONARY ARTERY W/O ANG PCTRS Status: Acute Plan: SEE ABOVE (3) Abnormal cardiovascular stress test Status: Acute (4) Uncontrolled diabetes mellitus Code(s): E11.65 - TYPE 2 DIABETES MELLITUS WITH HYPERGLYCEMIA Status: Acute Qualifiers: Diabetes mellitus type: type 2 Glycemic state: with hyperglycemia Qualified Code(s): E11.65 - Type 2 diabetes mellitus with hyperglycemia (5) Chest pain due to CAD Code(s): R07.9 - CHEST PAIN, UNSPECIFIED; I25.10 - ATHSCL HEART DISEASE OF [place] CORONARY ARTERY W/O ANG PCTRS Status: Acute (6) Chronic combined systolic and diastolic CHF, NYHA class 2 Code(s): I50.42 - CHRONIC COMBINED SYSTOLIC AND DIASTOLIC HRT FAIL Status: Chronic (7) Ischemic cardiomyopathy Code(s): I25.5 - ISCHEMIC CARDIOMYOPATHY Status: Chronic (8) Essential hypertension Code(s): I10 - ESSENTIAL (PRIMARY) HYPERTENSION Status: Chronic (9) Dyslipidemia Code(s): E78.5 - HYPERLIPIDEMIA, UNSPECIFIED Status: Chronic (10) Hyponatremia Code(s): E87.1 - HYPO-OSMOLALITY AND HYPONATREMIA Status: Acute (11) ASHLEY (acute kidney injury) Code(s): N17.9 - ACUTE KIDNEY FAILURE, UNSPECIFIED Status: Acute (12) Obesity (BMI 30.0-34.9) Code(s): E66.9 - OBESITY, UNSPECIFIED Status: Chronic - Plan cont current plan of care CONTINUE CABG PROTOCOL CODE; FULL CORE; LOVENOX DISP; ICU PROG; GUARDED CLINICAL STATUS; CRITICAL EXPECTED DISCHARGE; TBD TOTAL TIME SPENT; 30 MINUTES DATE OF SERVICE; 07/21/2018
--- NOTE | 2018-07-21 15:17 | RAD ---
CHEST ONE VIEW: HISTORY: Post open heart surgery. COMPARISON: 07/16/2018 FINDINGS: There are new mediastinal drains. A central venous catheter, left subclavian approach, sits at the l evel of the inferior SVC. Small effusions. No significant pneumothorax. Mild pulmonary venous walt estion. IMPRESSION: Expected postoperative findings. POS: [facility]
[2018-07-21] MEDS: Fentanyl 100 MCG/2 ML VIAL SLOW IVP PRN ×2 (15:25→17:40)
[2018-07-21] MEDS: Carvedilol 6.25 MG TAB PO SCH (16:35)
[2018-07-21] MEDS: Ketoconazole 2% Cream 15 gm Tube TOP SCH (16:36)
[2018-07-21] MEDS: Insulin Glargine 18 UNITS in Pre-Filled Syringe 1 EACH SC SCH (16:36)
[2018-07-21] MEDS: Senokot S 8.6-50 MG TAB PO SCH (16:36)
--- NOTE | 2018-07-21 17:36 | CON ---
DATE OF CONSULTATION: 07/21/2018 CHIEF COMPLAINT: Weakness, dizziness, and chest heaviness. HISTORY OF PRESENT ILLNESS: The patient is a 58-year-old black man with hypertension. He apparently was very recently diagnosed with diabetes when he presented to the [facility] emergency room, at that time a few days ago apparently he presented with weakness and was dizzy when he stood up. He was found to have a blood sugar of around 500. It was acutely lowered. He was given a prescription for metformin and sent home. He had recurrence of his symptoms and developed some chest heaviness and a little bit of shortness of breath. He had a blood sugar again in excess of 500, but because of the chest symptoms, it was opted to do a Cardiolite stress test, that showed global hypokinesis with an ejection fraction in the mid 30s, but no obvious ischemia. This prompted cardiac catheterization, which demonstrated a small diffusely diseased right coronary system, but a distal left main lesion. On presentation, his BUN was 23 and his creatinine 2.02, but his sugars have come under better control and his creatinine has come down into the 1.2 to 1.6 range. PAST MEDICAL HISTORY: Significant for severe series of dog bite injuries primarily involving his right upper extremity and his lower extremities, leaving him with a somewhat crippled right hand. HOME MEDICATIONS: 1. Norvasc 10 mg a day. 2. Baby aspirin a day. 3. Lipitor 40 mg a day. 4. Neurontin 300 mg t.i.d. 5. Tizanidine 4 mg b.i.d. 6. Metformin 500 mg b.i.d. 7. Chlorthalidone 25 mg a day. ALLERGIES: DENIES ANY MEDICAL ALLERGIES. SOCIAL HISTORY: He quit smoking in March, but had smoked about a half a pack of cigarettes a day up until then. FAMILY HISTORY: Negative for coronary artery disease. REVIEW OF SYSTEMS: Negative for any eye, speech, facial, or extremity symptoms consistent with ___TIA's reports that he drags his right foot as a consequence of his injury. PHYSICAL EXAMINATION: GENERAL: He is a rather parra appearing man, in no distress. VITAL SIGNS: He is 5 feet 8 inches, weighs 207-1/2 pounds. Heart rate is 72, blood pressure 141/94. HEENT: He has no xanthelasma. NECK: No JVD. No carotid bruits. CHEST: Clear to auscultation. HEART: He has regular rate and rhythm. ABDOMEN: Soft and nontender. EXTREMITIES: He has palpable radial and dorsalis pedis pulses bilaterally. He has extensive scarring primarily in his right upper extremity. He has skin graft harvest scars on his lower extremities. His right hand is somewhat withered. His chest x-ray shows slightly prominent markings. His EKG showed possible inferior infarction. LABORATORY DATA: Laboratory exams show white count of 11.3, hemoglobin 15.1, hematocrit 47.0, platelets 210,000. INR was 1.2. His chemistries from yesterday with normal electrolytes. Glucose 296, BUN 26, creatinine 1.57. Although on admission, his BUN was 23 and creatinine 2.02. His troponins were all less than 0.010. His triglycerides were 114, cholesterol 125, LDL 70, HDL 32. Cardiac catheterization shows an LVEF of around 30% or 35% with an LVEDP of 11, although he has a right dominant system. The right coronary is a very small diffusely diseased vessel with tiny branch vessels. He has fairly large left-sided coronaries, although the circumflex proper terminates in a rather small obtuse marginal. He has about 60% distal left main lesion and similar mid LAD lesion. He has long gradual lesions in a large ramus and in the groove circumflex. IMPRESSION AND RECOMMENDATIONS: Left main coronary artery disease with decreased LV function. We will plan on coronary artery bypass grafting in all likelihood only to the left-sided system. Job ID: [id number] [facility]
[2018-07-21 20:05] LABS: Hemoglobin 11.7 g/dL (14.0-18.0)
--- NOTE | 2018-07-21 20:14 | OP ---
DATE OF PROCEDURE: 07/21/2018 PROCEDURES PERFORMED: Coronary artery bypass grafting x3 with left internal mammary artery to the distal left anterior descending and reverse greater saphenous vein graft from the aorta to the ramus intermedius and from the aorta to the obtuse marginal and 5-[place] right femoral arterial line placement. PREOPERATIVE DIAGNOSES: Left main coronary artery disease with decreased left ventricular function. POSTOPERATIVE DIAGNOSES: Left main coronary artery disease with decreased left ventricular function. REFUELING RAMP ATTENDANT: Marcelo Jay MD ANESTHESIA: General endotracheal anesthesia. INDICATIONS: The patient is a 58-year-old man, who recently presented with generalized weakness and some dizziness. He was found to have a very high blood sugar establishing a new diagnosis of diabetes mellitus. He was started on oral medications and sent home just a few days later. He had recurrence of those symptoms and when he presented, he had some associated chest heaviness as well. A stress test was abnormal, prompting cardiac catheterization that showed a very small diffusely diseased right coronary system, but showed distal left main disease as well as disease in the LAD, ramus, and circumflex proper. He had decreased LV function with an EF of around 30% to 35% with an LVEDP of about 11. He is now taken to the operating room for revascularization. FINDINGS: Pump time 72 minutes. Cross-clamp time 35 minutes. Good quality ALEXA and saphenous vein. The LAD was about 2.5 mm vessel. The ramus about 2.5 mm in the intramyocardial. The obtuse marginal was about 1.5 mm distally and about 2 mm proximally. All those vessels were thick-walled and sclerotic. The RCA system was small and poor quality and there was inferior scar visible. The pericardium was loosely closed. NARRATIVE REPORT: After informed consent was obtained, the patient was taken to the operating room, placed in supine position on the operating table. After the induction of general anesthesia, saphenous vein was mapped ultrasonographically in the left lower extremity. His left upper chest was prepped and draped in sterile fashion and he was placed in Trendelenburg. A triple-lumen central line kit was used to place a left subclavian line. All 3 ports easily aspirated and flushed. The line was secured. The patient's torso, groins, and lower extremities were prepped and draped in sterile fashion. Saphenous vein was harvested from groin to about a handbreadth below the knee endoscopically using an incision just above the knee for a port site at the thigh level. He was converted partially to a skin bridge technique because bleeding from divided side branches of the vein interfered with adequate visualization. The wounds were inspected for hemostasis and closed in layers of subcutaneous and subcuticular Vicryl. A median sternotomy was performed. The left internal mammary artery was mobilized as a skeletonized in-situ graft from the level of the xiphoid to a little beyond the subclavian vein through an extrapleural exposure. The patient was heparinized. The mammary was ligated and divided distally and papaverine solution was instilled intraluminally. There was good flow through the mammary. The mammary bed was inspected for hemostasis. The ALEXA retractors replaced with a Mitchell retractor. The pericardium was opened and marsupialized. The aorta was palpated and was soft. A double concentric pursestring of 2-0 Ethibond was placed in the ascending aorta at the pericardial reflection and a single pursestring was placed in the right atrial appendage. Aortic and venous cannulae were inserted and secured by their pursestrings. The plane between the aorta and the pulmonary artery was developed. Cardiopulmonary bypass was instituted. The patient was systemically cooled. The heart was examined. The vessels to be bypassed were identified. The hilar reflections of the pleura were developed and a longitudinal slit was made in the pericardium anterior to the left phrenic nerve through which the mammary could be passed. An aortic cross-clamp was applied and cardioplegia was administered through an aortic root needle. When arrest had been achieved, attention was turned to the ramus. It was exposed and opened, where it dove intramyocardially. Reverse greater saphenous vein was anastomosed there in end-to-side with running Prolene suture and the anastomosis tested by flushing cold cardioplegia down the graft. The obtuse marginal was then explored. It was rather small vessel out distally, but upon exploring it as it emerged from the AV groove, though sclerotic, it was of reasonable size. It was opened and grafted end-to-side in a similar fashion. The right coronary system was re-examined and with the heart arrested, it was felt that it was too small vessel to readily support the bypass. Attention was then turned to the LAD, it was opened at a relative soft spot distally. The mammary was anastomosed there with running 7-0 Prolene and tacked to the epicardium. The aortic cross-clamp was placed with partial occluding clamp and aortotomy was made in the ascending aorta with the scalpel and punch. The ramus graft was anastomosed to the more proximal aortotomy in the OM graft to the more distal aortotomy. The vein grafts were proximal, anastomoses were marked with small hemoclips. The partial occluding clamp was removed and the vein grafts were de-aired. The bulldogs were removed from them. The anastomoses were inspected for hemostasis. A posterior pericardial drain was brought out through a separate incision and secured with suture. Right atrial and right ventricular temporary epicardial pacing wires were placed with the use of low-dose Levophed, nitroglycerin, and pacing. The patient was then from cardiopulmonary bypass. Aortic and venous cannulae were removed and the pursestring secured. Protamine was administered. When hemostasis was adequate, anterior mediastinal drain was placed. It was not feasible to completely close the pericardium. The superior aspects were reapproximated to cover up the aorta and the proximal portions of the vein grafts and the inferior medial aspects were loosely tacked back together near the diaphragmatic surface. The vancomycin paste and platelet rich GPS were applied to the cut surfaces of the sternum, which was then reapproximated with #7 stainless steel wires. Soft tissues were irrigated and treated with platelet poor GPS. The fascia was closed over the wires with running #1 Vicryl. The subcutaneous tissue reapproximated with 2-0 Vicryl and the skin was closed with Vicryl subcuticular suture and Dermabond. The wounds were dressed. The patient was extubated in the operating room and taken to the surgical ICU in stable condition. Job ID: [id number]
[2018-07-21] MEDS: Atorvastatin Calcium 40 MG TAB PO SCH (20:19)
[2018-07-21 20:20] LABS: Potassium 4.6 mmol/L (3.5-5.1)
[2018-07-21] MEDS: HYDROcodone/Acetaminophen 5/325 mg Tablet PO PRN (20:29)
[2018-07-21] MEDS ORDERED: Famotidine/PF 20 mg/2ml Vial SLOW IVP SCH (21:00)
--- NOTE | 2018-07-21 23:25 | EKG ---
Test Reason : POST CABG Blood Pressure : / mmHG Vent. Rate : 077 BPM Atrial Rate : 077 BPM P-R Int : 192 ms QRS Dur : 092 ms QT Int : 390 ms P-R-T Axes : 071 005 -16 degrees QTc Int : 441 ms Normal sinus rhythm Inferior infarct (cited on or before 03-JUL-2014)/Q's III and aVF Abnormal ECG When compared with ECG of 16-JUL-2018 11:37, (Unconfirmed) Sinus rhythm has replaced Ectopic atrial rhythm Questionable change in initial forces of Inferior leads Confirmed by ADEEL ANNE ([id number]) on 07/21/2018 11:24:44 PM Referred By: LINDA Confirmed By:ADEEL ANNE
[2018-07-22] MEDS: HYDROcodone/Acetaminophen 5/325 mg Tablet PO PRN ×3 (02:14→19:21)
[2018-07-22] MEDS: Sodium Chloride 0.9% 1,000 ML IV SCH (04:19)
[2018-07-22 04:51] LABS: #Lymphocytes 2.5 thou/uL (1.20-3.40); #Monocytes 1.1 thou/uL (0.11-0.59); #Neutrophils 7.2 thou/uL (1.40-6.50); %Basophils 0.4 % (0.0-1.0); %Eosinophils 0.1 % (0.0-10.0); %Monocytes 9.8 % (0.0-10.0); %Neutrophils 66.7 % (42.0-75.0); Hemoglobin 10.3 g/dL (14.0-18.0); Mean Corpuscular HGB CONC 32.4 g/dL (32.0-36.0); Mean Corpuscular Volume 83.1 fL (78.0-98.0); Mean Platelet Volume 8.6 fL (7.4-10.4); Platelet Count 138 thou/uL (130-400); RBC Distribution Width 13.4 % (11.5-14.5); Red Blood Cell (RBC) Count 3.82 mill/uL (4.70-6.10); White Blood Cell (WBC) Count 10.8 thou/uL (4.8-10.8)
[2018-07-22 05:11] LABS: Anion Gap 12 mmol/L (10-20); BUN (Urea Nitrogen) 20 mg/dL (8.4-25.7); Calc. Creatinine Clearance 77 mL/min (70-130); Calcium 8.6 mg/dL (7.8-10.44); Carbon Dioxide 22 mmol/L (22-29); Chloride 109 mmol/L (98-107); Estimated GFR-MDRD 63; Glucose 118 mg/dL (70-105); Potassium 3.9 mmol/L (3.5-5.1); Sodium 139 mmol/L (136-145)
--- NOTE | 2018-07-22 07:44 | RAD ---
Chest one view HISTORY: Heart surgery. Follow-up. COMPARISON: 07/21/2018. FINDINGS: Cardiac silhouette is magnified by projection. Pulmonary vasculature upper limits of normal . Bibasilar atelectasis, left greater than right, is similar in appearance to the previous exam. Mediastinum is midline with postoperative changes. Left subclavian central venous catheter remains in place. No evidence of pneumothorax. IMPRESSION: Stable postoperative appearance of the chest.
[2018-07-22] MEDS ORDERED: Zolpidem Tartrate 5 MG TAB PO PRN (08:04)
[2018-07-22] MEDS ORDERED: Nitroglycerin 0.4 MG TAB (25 Tab Bottle) SL PRN (08:04)
[2018-07-22] MEDS ORDERED: Dextrose 5% in Water 1,000 ML IV PRN (08:04)
[2018-07-22] MEDS ORDERED: Guaifenesin DM 100-10/5 ML UDCUP PO PRN (08:04)
[2018-07-22] MEDS ORDERED: Bisacodyl 10 MG SUPP PR PRN (08:04)
[2018-07-22] MEDS ORDERED: Bisacodyl 5 MG TAB PO PRN (08:04)
[2018-07-22] MEDS ORDERED: Mineral Oil ENEMA PR PRN (08:04)
[2018-07-22] MEDS ORDERED: Furosemide 40 MG/4 ML VIAL SLOW IVP SCH (08:04)
[2018-07-22] MEDS ORDERED: Mag-Al 1200 mg/1200 mg/30 ML UDCUP PO PRN (08:04)
[2018-07-22] MEDS ORDERED: Artificial Tears 18 DROP/0.9 ML EA EYE PRN (08:04)
[2018-07-22] MEDS ORDERED: Dextrose 50% Abboject 50 ML SYRINGE SLOW IVP PRN (08:04)
[2018-07-22] MEDS ORDERED: diphenhydrAMINE 25 MG CAP PO PRN (08:04)
[2018-07-22] MEDS: Aspirin 81 mg Enteric Coated Tablet PO SCH (08:11)
[2018-07-22] MEDS: tiZANidine HCl 4 MG TAB PO SCH ×2 (08:11→19:22)
[2018-07-22] MEDS: Gabapentin 300 MG CAP PO SCH ×3 (08:11→19:22)
[2018-07-22] MEDS ORDERED: Insulin Glargine 7 UNITS in Pre-Filled Syringe 1 EACH SC SCH (08:30)
[2018-07-22] MEDS ORDERED: Aspirin Chewable 81 MG TAB PO SCH (09:00)
--- NOTE | 2018-07-22 11:50 | OP ---
DATE OF PROCEDURE: 07/21/2018 ADDENDUM: PROCEDURE PERFORMED: Coronary artery bypass grafting x3 with left internal mammary artery to the LAD and reverse greater saphenous vein graft from the aorta to the ramus intermedius and from the aorta to the obtuse marginal and 5-[place] right femoral arterial line placement. NARRATIVE REPORT: After completion of conduit harvest and cannulation and before going on pump, it was recognized that while there was inadequate waveform on the radial arterial line, it was not possible to aspirate it. On palpating the aorta, the pressure seemed to correlate reasonably well; however, because of inability to aspirate the arterial line for blood sampling and concerns that may progress to problems with reliability, it was opted to place a femoral arterial line. A 5-[place] Cook catheter kit was used to percutaneously access the right femoral artery. It was aspirated easily. The wire passed easily as did the catheter. Upon removal of the wire and connection to the pressure monitoring circuit, there was good waveform. The line was secured. Job ID: [id number]
[2018-07-22] MEDS: Insulin Regular 300 UNITS/3 ML VIAL SC PRN ×3 (12:25→21:36)
--- NOTE | 2018-07-22 14:07 | PDOC.PN ---
- Subjective Encounter Start Date: 07/22/18 Encounter Start Time: 10:45 CC; CHEST PAIN SUBJECTIVE; PATIENT SEEN AND EVAL. HE IS SITING IN A CHAIR. HE REFERS SURGICAL SITE PAIN. PER NURSE, NO OTHER ACUTE EVENT OVERNIGHT. ROS; ALL SYSTEMS ARE REVIEWED AND NEGATIVE EXCEPT FOR THE ONES MENTIONED ABOVE - Objective Resuscitation Status - Order Detail: 07/16/18 20:06 Resuscitation Status Routine Co-Sign Provider: Resuscitation Status: FULL: Full Resuscitation MAR Reviewed: Yes Vital Signs & Weight: Vital Signs (12 hours) Temp Pulse Pulse BP BP Pulse Ox Pulse Ox 07/22/18 10:16 89 93 94/68 117/77 95 07/22/18 08:00 98.8 F 97 07/22/18 04:00 98.6 F Pulse Ox 07/22/18 10:16 97 07/22/18 08:00 07/22/18 04:00 Weight Weight 208 lb Most Recent Monitor Data Heart Rate from ECG 98 NIBP 117/68 NIBP BP-Mean 84 Respiration from ECG 24 SpO2 96 I&O: 07/21/18 07/22/18 07/23/18 06:59 06:59 06:59 Intake Total 1470 3246.3 Output Total 400 1005 300 Balance 1070 2241.3 -300 Result Diagrams: 07/22/18 04:40 07/22/18 04:40 Additional Labs: Accuchecks 07/22/18 07/22/18 07/22/18 12:26 01:04 00:05 POC Glucose 223 H 111 H 117 H 07/21/18 07/21/18 07/21/18 23:06 22:05 21:08 POC Glucose 118 H 128 H 125 H 07/21/18 07/21/18 07/21/18 20:24 19:17 18:05 POC Glucose 120 H 127 H 106 07/21/18 07/21/18 07/21/18 17:00 15:52 14:24 POC Glucose 155 H 167 H 105 Radiology Reviewed by me: Yes EKG Reviewed by me: Yes Phys Exam - Physical Examination HEENT: PERRLA, moist MMs, sclera anicteric, oral pharynx no lesions Neck: no nodes, no JVD, supple Respiratory: no wheezing, no rales, no rhonchi, clear to auscultation bilateral Cardiovascular: RRR, no significant murmur, no rub Gastrointestinal: soft, non-tender, no distention, positive bowel sounds Musculoskeletal: no edema, pulses present Neurological: non-focal, normal sensation Psychiatric: normal affect, A&O x 3 Skin: no rash, normal turgor, cap refill <2 seconds Deviation from normal: SURGICAL SITE HEALING. CHEST TUBES Dx/Plan (1) S/P CABG (coronary artery bypass graft) Code(s): Z95.1 - PRESENCE OF AORTOCORONARY BYPASS GRAFT Status: Acute Plan: DAY 1. PER CT SURGEON MANAGEMENT (2) Multi-vessel coronary artery stenosis Code(s): I25.10 - ATHSCL HEART DISEASE OF [place] CORONARY ARTERY W/O ANG PCTRS Status: Acute (3) Abnormal cardiovascular stress test Status: Acute (4) Uncontrolled diabetes mellitus Code(s): E11.65 - TYPE 2 DIABETES MELLITUS WITH HYPERGLYCEMIA Status: Acute Qualifiers: Diabetes mellitus type: type 2 Glycemic state: with hyperglycemia Qualified Code(s): E11.65 - Type 2 diabetes mellitus with hyperglycemia (5) Chest pain due to CAD Code(s): R07.9 - CHEST PAIN, UNSPECIFIED; I25.10 - ATHSCL HEART DISEASE OF [place] CORONARY ARTERY W/O ANG PCTRS Status: Acute (6) Chronic combined systolic and diastolic CHF, NYHA class 2 Code(s): I50.42 - CHRONIC COMBINED SYSTOLIC AND DIASTOLIC HRT FAIL Status: Chronic (7) Ischemic cardiomyopathy Code(s): I25.5 - ISCHEMIC CARDIOMYOPATHY Status: Chronic (8) Essential hypertension Code(s): I10 - ESSENTIAL (PRIMARY) HYPERTENSION Status: Chronic (9) Dyslipidemia Code(s): E78.5 - HYPERLIPIDEMIA, UNSPECIFIED Status: Chronic (10) Hyponatremia Code(s): E87.1 - HYPO-OSMOLALITY AND HYPONATREMIA Status: Acute (11) ASHLEY (acute kidney injury) Code(s): N17.9 - ACUTE KIDNEY FAILURE, UNSPECIFIED Status: Acute (12) Obesity (BMI 30.0-34.9) Code(s): E66.9 - OBESITY, UNSPECIFIED Status: Chronic - Plan cont current plan of care CONTINUE TO MONITOR. PATIENT IMPROVING EXPECTED. CARDIOLOGY AND CT SURGERY MANAGING CABG PROTOCOL CODE: FULL CORE; SCD PPI DISP; ICU PROG; GUARDED CLINICAL STATUS; GUARDED EXPECTED DISCHARGE; TBD TOTAL TIME SPENT; 25 MINUTES DATE OF SERVICE; 07/22/2018
--- NOTE | 2018-07-22 14:23 | PDOC.CTH ---
Cardiology Progress Note - Subjective Complaining of CW pain only - Objective Vital Signs Temp Pulse Pulse BP BP Pulse Ox Pulse Ox 07/22/18 10:16 89 93 94/68 117/77 95 07/22/18 08:00 98.8 F 97 07/22/18 04:00 98.6 F Pulse Ox 07/22/18 10:16 97 07/22/18 08:00 07/22/18 04:00 Weight 208 lb 07/21/18 07/22/18 07/23/18 06:59 06:59 06:59 Intake Total 1470 3246.3 Output Total 400 1005 300 Balance 1070 2241.3 -300 - Physical Examination General/Neuro: alert & oriented x3, NAD Neck: carotid US brisk, no JVD present Lungs: unlabored respirations Heart: RRR Abdomen: NT/ND, soft Extremities: + femoral B - Labs Result Diagrams: 07/23/18 03:20 07/23/18 03:20 Troponin/CKMB Troponin I Less than 0.010 ng/mL (< 0.028) 07/16/18 19:32 - Assessment/Plan CAD s/p CABG DM HLD HTN Tobacco abuse IP and PT Statin, BB and ASA Stop smoking
[2018-07-22] MEDS: Atorvastatin Calcium 40 MG TAB PO SCH (19:22)
--- NOTE | 2018-07-22 19:47 | CON ---
DATE OF CONSULTATION: 07/22/2018 SUBJECTIVE: Mr. Jerez is doing well. He is status post bypass surgery. His main complaint is chest wall pain. He has been sitting for several hours. No other complaints present. OBJECTIVE: VITAL SIGNS: Blood pressure 105/76, pulse 101, respirations 20. LUNGS: Clear to auscultation. HEART: Regular rate and rhythm. ABDOMEN: Soft, nontender, nondistended. EXTREMITIES: No edema. IMPRESSION: Coronary artery disease, status post bypass surgery. RECOMMENDATIONS: We will add low-dose beta-amaris therapy. He is currently on aspirin in addition to atorvastatin. Incentive spirometry and physical therapy recommended. Job ID: [id number]
[2018-07-22] MEDS: Metoprolol Tartrate 25 MG TAB PO SCH (21:44)
[2018-07-23] MEDS: HYDROcodone/Acetaminophen 5/325 mg Tablet PO PRN ×3 (03:46→20:55)
[2018-07-23] MEDS: Insulin Regular 300 UNITS/3 ML VIAL SC PRN ×4 (03:47→16:45)
[2018-07-23 04:34] LABS: #Eosinphils 0.1 thou/uL (0.0-0.7); #Lymphocytes 2.9 thou/uL (1.20-3.40); #Monocytes 1.2 thou/uL (0.11-0.59); %Basophils 0.3 % (0.0-1.0); %Eosinophils 0.7 % (0.0-10.0); %Lymphocytes 25.9 % (21.0-51.0); %Monocytes 10.3 % (0.0-10.0); %Neutrophils 62.8 % (42.0-75.0); Hemoglobin 10.1 g/dL (14.0-18.0); Mean Corpuscular HGB CONC 32.6 g/dL (32.0-36.0); Mean Corpuscular Hemoglobin 27.2 pg (27.0-31.0); Mean Corpuscular Volume 83.4 fL (78.0-98.0); Mean Platelet Volume 8.8 fL (7.4-10.4); Platelet Count 142 thou/uL (130-400); RBC Distribution Width 13.5 % (11.5-14.5); Red Blood Cell (RBC) Count 3.72 mill/uL (4.70-6.10); White Blood Cell (WBC) Count 11.2 thou/uL (4.8-10.8)
[2018-07-23 04:50] LABS: Anion Gap 12 mmol/L (10-20); BUN (Urea Nitrogen) 18 mg/dL (8.4-25.7); Calc. Creatinine Clearance 82 mL/min (70-130); Calcium 8.8 mg/dL (7.8-10.44); Carbon Dioxide 23 mmol/L (22-29); Chloride 106 mmol/L (98-107); Estimated GFR-MDRD 67; Glucose 201 mg/dL (70-105); Potassium 3.8 mmol/L (3.5-5.1); Sodium 137 mmol/L (136-145)
--- NOTE | 2018-07-23 07:56 | RAD ---
Chest AP view INDICATION: Status post CABG COMPARISON: July 22, 2018 FINDINGS: Tubes and Lines: Stable. Lungs:There are persistent hazy opacities within both lower lobes.. Cardiac silhouette pulmonary vasculature:Cardiomegaly persists. Pulmonary vascularity is within darian l limits.. Pleural spaces: Bilateral pleural effusions, left greater than right, are stable. No pneumothorax. Upper abdomen:No abnormality seen. Osseous structures: No acute abnormality. IMPRESSION: Stable examination. No pneumothorax.
[2018-07-23] MEDS: tiZANidine HCl 4 MG TAB PO SCH ×2 (09:35→20:55)
[2018-07-23] MEDS: Aspirin 81 mg Enteric Coated Tablet PO SCH (09:35)
[2018-07-23] MEDS: Gabapentin 300 MG CAP PO SCH ×3 (09:35→20:54)
[2018-07-23] MEDS: Metoprolol Tartrate 25 MG TAB PO SCH ×2 (09:35→20:54)
--- NOTE | 2018-07-23 13:35 | PDOC.PN ---
- Subjective Encounter Start Date: 07/23/18 Encounter Start Time: 11:00 CC; CHEST PAIN SUBJECTIVE; PATIENT SEEN AND EVALUATED. REFERS SURGICAL SITE PAIN ONLY. PER NURSE, NO OTHER ACUTE EVENTS. ROS; ALL SYSTEMS ARE REVIEWED AND NEGATIVE EXCEPT FOR THE ONES MENTIONED ABOVE - Objective Resuscitation Status - Order Detail: 07/16/18 20:06 Resuscitation Status Routine Co-Sign Provider: Resuscitation Status: FULL: Full Resuscitation MAR Reviewed: Yes Vital Signs & Weight: Vital Signs (12 hours) Temp Pulse Ox 07/23/18 07:32 96 07/23/18 07:19 98.5 F 07/23/18 04:00 99 F Weight Weight 208 lb 15.971 oz Most Recent Monitor Data Heart Rate from ECG 106 NIBP 107/65 NIBP BP-Mean 79 Respiration from ECG 24 SpO2 97 I&O: 07/22/18 07/23/18 07/24/18 06:59 06:59 06:59 Intake Total 3246.3 1010 120 Output Total 1005 1165 315 Balance 2241.3 -155 -195 Result Diagrams: 07/23/18 03:20 07/23/18 03:20 Additional Labs: Accuchecks 07/23/18 07/23/18 07/23/18 12:50 08:41 03:13 POC Glucose 229 H 190 H 212 H 07/22/18 07/22/18 07/22/18 21:36 17:52 05:54 POC Glucose 209 H 225 H 103 07/22/18 07/22/18 07/22/18 04:13 03:15 02:15 POC Glucose 120 H 111 H 112 H 07/21/18 12:33 POC Glucose 116 H Radiology Reviewed by me: Yes EKG Reviewed by me: Yes Phys Exam - Physical Examination HEENT: PERRLA, moist MMs, sclera anicteric, TM's clear Neck: no nodes, no JVD, supple, full ROM Respiratory: no wheezing, no rales, no rhonchi Cardiovascular: RRR, no significant murmur, no rub Gastrointestinal: soft, non-tender, no distention, positive bowel sounds Musculoskeletal: no edema, pulses present Neurological: non-focal, normal sensation, moves all 4 limbs Psychiatric: normal affect, A&O x 3 Skin: no rash, normal turgor, cap refill <2 seconds Deviation from normal: SURGICAL SITE HEALING Dx/Plan (1) S/P CABG (coronary artery bypass graft) Code(s): Z95.1 - PRESENCE OF AORTOCORONARY BYPASS GRAFT Status: Acute Plan: CONTINUE PROTOCOL. HEALING EXPECTED (2) Multi-vessel coronary artery stenosis Code(s): I25.10 - ATHSCL HEART DISEASE OF [place] CORONARY ARTERY W/O ANG PCTRS Status: Acute (3) Abnormal cardiovascular stress test Status: Acute (4) Uncontrolled diabetes mellitus Code(s): E11.65 - TYPE 2 DIABETES MELLITUS WITH HYPERGLYCEMIA Status: Acute Qualifiers: Diabetes mellitus type: type 2 Glycemic state: with hyperglycemia Qualified Code(s): E11.65 - Type 2 diabetes mellitus with hyperglycemia (5) Chest pain due to CAD Code(s): R07.9 - CHEST PAIN, UNSPECIFIED; I25.10 - ATHSCL HEART DISEASE OF [place] CORONARY ARTERY W/O ANG PCTRS Status: Acute (6) Chronic combined systolic and diastolic CHF, NYHA class 2 Code(s): I50.42 - CHRONIC COMBINED SYSTOLIC AND DIASTOLIC HRT FAIL Status: Chronic (7) Ischemic cardiomyopathy Code(s): I25.5 - ISCHEMIC CARDIOMYOPATHY Status: Chronic (8) Essential hypertension Code(s): I10 - ESSENTIAL (PRIMARY) HYPERTENSION Status: Chronic (9) Dyslipidemia Code(s): E78.5 - HYPERLIPIDEMIA, UNSPECIFIED Status: Chronic (10) Hyponatremia Code(s): E87.1 - HYPO-OSMOLALITY AND HYPONATREMIA Status: Resolved (11) ASHLEY (acute kidney injury) Code(s): N17.9 - ACUTE KIDNEY FAILURE, UNSPECIFIED Status: Acute Plan: PRERENAL (12) Obesity (BMI 30.0-34.9) Code(s): E66.9 - OBESITY, UNSPECIFIED Status: Chronic - Plan cont current plan of care CONTINUE CABG PROTOCOL. CONTINUE CHEST TUBE CARE. CODE; FULL CORE; SCD DISP; ICU PROG; GUARDED CLINICAL STATUS; GUARDED EXPECTED DISCHARGE; TBD TOTAL TIME SPENT; 25 MINUTES DATE OF SERVICE; 07/23/2018
[2018-07-23] MEDS: Atorvastatin Calcium 40 MG TAB PO SCH (20:54)
[2018-07-24 05:23] LABS: #Eosinphils 0.2 thou/uL (0.0-0.7); #Lymphocytes 2.9 thou/uL (1.20-3.40); #Monocytes 0.9 thou/uL (0.11-0.59); #Neutrophils 6.5 thou/uL (1.40-6.50); %Basophils 0.5 % (0.0-1.0); %Eosinophils 1.6 % (0.0-10.0); %Lymphocytes 27.5 % (21.0-51.0); %Monocytes 8.9 % (0.0-10.0); %Neutrophils 61.6 % (42.0-75.0); Mean Corpuscular HGB CONC 32.4 g/dL (32.0-36.0); Mean Corpuscular Hemoglobin 27.2 pg (27.0-31.0); Mean Platelet Volume 8.4 fL (7.4-10.4); Platelet Count 152 thou/uL (130-400); RBC Distribution Width 13.5 % (11.5-14.5); Red Blood Cell (RBC) Count 3.66 mill/uL (4.70-6.10); White Blood Cell (WBC) Count 10.6 thou/uL (4.8-10.8)
[2018-07-24] MEDS: HYDROcodone/Acetaminophen 5/325 mg Tablet PO PRN ×2 (05:37→20:07)
[2018-07-24 05:45] LABS: Anion Gap 13 mmol/L (10-20); BUN (Urea Nitrogen) 15 mg/dL (8.4-25.7); Calc. Creatinine Clearance 99 mL/min (70-130); Calcium 8.8 mg/dL (7.8-10.44); Carbon Dioxide 23 mmol/L (22-29); Chloride 105 mmol/L (98-107); Estimated GFR-MDRD 79; Glucose 140 mg/dL (70-105); Potassium 3.4 mmol/L (3.5-5.1); Sodium 138 mmol/L (136-145)
--- NOTE | 2018-07-24 06:07 | PDOC.CTH ---
Cardiology Progress Note - Subjective No complaints noted. Pt states he is ambulating - Objective Vital Signs Temp Pulse Resp BP Pulse Ox 07/24/18 04:00 97.5 F L 91 19 112/75 93 L 07/24/18 00:00 98.3 F 88 18 105/58 L 93 L 07/23/18 21:12 98.9 F 85 18 98/62 96 Weight 217 lb 14.4 oz 07/22/18 07/23/18 07/24/18 06:59 06:59 06:59 Intake Total 3246.3 1010 150 Output Total 1005 1165 870 Balance 2241.3 -155 -720 - Physical Examination General/Neuro: alert & oriented x3, NAD Neck: carotid US brisk, no JVD present Lungs: CTA, unlabored respirations Heart: PMI normal, RRR Abdomen: NT/ND, soft Extremities: + femoral B - Labs Result Diagrams: 07/24/18 04:54 07/24/18 04:54 Troponin/CKMB Troponin I Less than 0.010 ng/mL (< 0.028) 07/16/18 19:32 - Assessment/Plan CAD s/p CABG DM HLD HTN Tobacco abuse REC: 07/22 IP and PT Statin, BB and ASA Stop smoking REC: 07/24 Pt transferred to Tele Continue 2nd RF modification IS and ambulation
[2018-07-24] MEDS: Metoprolol Tartrate 25 MG TAB PO SCH ×2 (08:54→20:09)
[2018-07-24] MEDS: Gabapentin 300 MG CAP PO SCH ×3 (08:54→20:09)
[2018-07-24] MEDS: Aspirin 81 mg Enteric Coated Tablet PO SCH (08:54)
[2018-07-24] MEDS: tiZANidine HCl 4 MG TAB PO SCH ×2 (08:54→20:09)
[2018-07-24] MEDS: Insulin Regular 300 UNITS/3 ML VIAL SC PRN (11:56)
--- NOTE | 2018-07-24 12:34 | PRG ---
DATE OF SERVICE: 07/24/2018 SUBJECTIVE: The patient is seen and examined at bedside. He complains about chest discomfort from surgery, rating at 5 to 7. OBJECTIVE: VITAL SIGNS: Blood pressure is 105/73, pulse is 89, respiratory rate is 20, and O2 saturation is 94% on room air. His temperature is 97.3 and maximal temperature is 98.9. HEENT: His head is atraumatic and normocephalic. Eyes are PERRLA. Sclerae are nonicteric. Conjunctivae palish. Oral mucosa is moist. NECK: Supple. LUNGS: Breath sounds diminished at both bases. HEART: S1 and S2 normal. No S3. No S4. SKIN: The incision line in the mid chest looks good. ABDOMEN: Soft, mildly tender to deeper palpation. No guarding. No mass. EXTREMITIES: No clubbing, cyanosis, or edema. NEUROLOGIC: He follows my commands. He moves his all 4 extremities. There is no any motor or sensory deficits present. Cranial nerves are intact. LABORATORY DATA: Labs showed white count of 10.6, hemoglobin 10.0, hematocrit 30.8, and platelet count 152,000. Sodium of 130, potassium 3.4, and the rest of chemistry within normal limits. Glycemia is ranging from 138 to 259 and calcium 8.8. IMPRESSION: 1. Status post coronary artery bypass grafting. 2. Multivessel coronary artery disease. 3. Uncontrolled diabetes mellitus. 4. Chronic combined systolic and diastolic congestive heart failure, [place] Heart Association class 2. 5. Ischemic cardiomyopathy. 6. Essential hypertension. 7. Acute kidney injury, prerenal. PLAN: The patient was taking metformin at home for his diabetes. We are going to start him on glipizide along with his insulin for before meals and at bedtime coverage. We will continue his beta amaris in the current dose. His blood pressure is running on the lower side. We will continue his rehab postop. Job ID: [id number]
[2018-07-24] MEDS: Atorvastatin Calcium 40 MG TAB PO SCH (20:09)
[2018-07-25 04:54] LABS: #Eosinphils 0.2 thou/uL (0.0-0.7); #Lymphocytes 2.5 thou/uL (1.20-3.40); #Monocytes 0.8 thou/uL (0.11-0.59); #Neutrophils 5.3 thou/uL (1.40-6.50); %Basophils 0.4 % (0.0-1.0); %Eosinophils 2.2 % (0.0-10.0); %Lymphocytes 28.1 % (21.0-51.0); %Monocytes 8.6 % (0.0-10.0); %Neutrophils 60.6 % (42.0-75.0); Hemoglobin 9.7 g/dL (14.0-18.0); Mean Corpuscular HGB CONC 31.6 g/dL (32.0-36.0); Mean Corpuscular Hemoglobin 26.1 pg (27.0-31.0); Mean Corpuscular Volume 82.6 fL (78.0-98.0); Mean Platelet Volume 8.5 fL (7.4-10.4); Platelet Count 195 thou/uL (130-400); RBC Distribution Width 13.5 % (11.5-14.5); Red Blood Cell (RBC) Count 3.73 mill/uL (4.70-6.10); White Blood Cell (WBC) Count 8.8 thou/uL (4.8-10.8)
[2018-07-25 05:14] LABS: Anion Gap 10 mmol/L (10-20); BUN (Urea Nitrogen) 16 mg/dL (8.4-25.7); Calc. Creatinine Clearance 95 mL/min (70-130); Calcium 8.7 mg/dL (7.8-10.44); Carbon Dioxide 25 mmol/L (22-29); Chloride 106 mmol/L (98-107); Estimated GFR-MDRD 76; Glucose 179 mg/dL (70-105); Potassium 3.3 mmol/L (3.5-5.1); Sodium 138 mmol/L (136-145)
[2018-07-25] MEDS: Gabapentin 300 MG CAP PO SCH ×3 (09:32→20:43)
[2018-07-25] MEDS: Aspirin 81 mg Enteric Coated Tablet PO SCH (09:32)
[2018-07-25] MEDS: tiZANidine HCl 4 MG TAB PO SCH ×2 (09:32→20:43)
[2018-07-25] MEDS: Carvedilol 3.125 MG TAB PO SCH ×2 (09:36→16:32)
[2018-07-25] MEDS: Lisinopril 2.5 MG TAB PO SCH (09:37)
[2018-07-25] MEDS ORDERED: Potassium Chloride 20 MEQ TAB PO SCH (10:15)
[2018-07-25] MEDS: Insulin Regular 300 UNITS/3 ML VIAL SC PRN ×2 (11:44→18:10)
[2018-07-25] MEDS: HYDROcodone/Acetaminophen 5/325 mg Tablet PO PRN ×2 (12:58→20:48)
--- NOTE | 2018-07-25 19:52 | PRG ---
DATE OF SERVICE: 07/25/2018 SUBJECTIVE: The patient is seen and examined at the bedside. He is complaining about some left neck and left shoulder pain along with some increased nervousness. OBJECTIVE: VITAL SIGNS: Blood pressure is 125/75, pulse is 101, temperature is 98.1, respiratory rate is 16, O2 saturation is 95% on room air. HEENT: His head is atraumatic, normocephalic. Eyes are PERRLA. Sclerae are nonicteric. Oral mucosa is moist. NECK: Tender on range of motion and palpation of the left side of the neck. CHEST: Midline incision looks good. LUNGS: Breath sounds diminished at both bases. HEART: S1, S2 normal. No S3. No S4. ABDOMEN: Soft, obese, nontender. EXTREMITIES: No clubbing, cyanosis, or edema. NEUROLOGICAL: He is alert and oriented x4. There is no any motor or sensory deficits present. Cranial nerves are intact. LABORATORY DATA: Labs showed white count of 8.8, hemoglobin 9.7, hematocrit 30.8, platelet count is 195. Sodium of 138, potassium 3.3, chloride 106, CO2 of 25, BUN 16, creatinine 1.2, glycemia is ranging from 150 to 259 in the last 24 hours. IMPRESSION: 1. Status post coronary artery bypass grafting. 2. Multivessel coronary artery disease. 3. Uncontrolled diabetes mellitus. 4. Combined systolic and diastolic congestive heart failure. 5. Ischemic cardiomyopathy. 6. Essential hypertension. 7. Acute kidney injury, improved. PLAN: The patient is taking glipizide twice a day. His glycemia is improved somewhat. We are going to continue this regimen along with his insulin sliding scale a.c. and at bedtime. He complains about this neck pain, which is most likely related to some degenerative changes in his neck versus diskopathy, which is affecting nerves coming out from his cervical spine down to his left shoulder. I advised him not to take more medications, he is on opioids at this point and muscle relaxant and adding more it would affect his energy level and ability to recover from his surgery. We will continue PT post cardiac CABG as per protocol and was supplemented by Dr. Cuevas this morning, and if his pain does not get any better with current regimen, he will need probably some external cream or ointment in form of anti-inflammatory medications. Job ID: [id number]
[2018-07-25] MEDS: Atorvastatin Calcium 40 MG TAB PO SCH (20:43)
[2018-07-26] MEDS ORDERED: Carvedilol 3.125 MG TAB PO SCH (09:15)
[2018-07-26] MEDS: Polyethylene Glycol 3350 17 GM Packet PO SCH (09:27)
[2018-07-26] MEDS: tiZANidine HCl 4 MG TAB PO SCH (09:28)
[2018-07-26] MEDS: Gabapentin 300 MG CAP PO SCH ×3 (09:28→21:22)
[2018-07-26] MEDS: Aspirin 81 mg Enteric Coated Tablet PO SCH (09:29)
[2018-07-26] MEDS: HYDROcodone/Acetaminophen 5/325 mg Tablet PO PRN (09:29)
[2018-07-26] MEDS: Lisinopril 2.5 MG TAB PO SCH (09:29)
[2018-07-26] MEDS: Carvedilol 3.125 MG TAB PO SCH ×2 (09:33→16:34)
[2018-07-26] MEDS: Insulin Regular 300 UNITS/3 ML VIAL SC PRN (12:18)
[2018-07-26] MEDS: Ibuprofen 200 MG TAB PO SCH ×2 (15:32→21:22)
--- NOTE | 2018-07-26 15:38 | PDOC.PN ---
- Subjective Encounter Start Date: 07/26/18 Encounter Start Time: 11:05 Mr. Jerez was seen today in follow-up of CAD s/p CABG. He says he notes some fatigue, and also some dyspnea when he walks in the halls. Otherwise no problems. - Objective Resuscitation Status - Order Detail: 07/16/18 20:06 Resuscitation Status Routine Co-Sign Provider: Resuscitation Status: FULL: Full Resuscitation MAR Reviewed: Yes Vital Signs & Weight: Vital Signs (12 hours) Temp Pulse Pulse Pulse Resp BP BP 07/26/18 15:35 98.4 F 96 18 07/26/18 15:13 107 H 108 H 140/93 H 07/26/18 15:10 110 H 101 H 131/72 07/26/18 12:22 97.9 F 73 18 07/26/18 09:29 101 H 131/72 07/26/18 09:24 07/26/18 08:15 98.7 F 101 H 20 BP BP BP Pulse Ox Pulse Ox Pulse Ox 07/26/18 15:35 128/73 96 07/26/18 15:13 121/74 97 140 H 07/26/18 15:10 126/70 96 96 07/26/18 12:22 132/85 95 07/26/18 09:29 07/26/18 09:24 97 07/26/18 08:15 127/80 97 Weight Weight 216 lb 9.6 oz Most Recent Monitor Data Heart Rate from ECG 108 NIBP 123/60 NIBP BP-Mean 81 Respiration from ECG 19 SpO2 97 I&O: 07/25/18 07/26/18 07/27/18 06:59 06:59 06:59 Intake Total 480 Balance 480 Result Diagrams: 07/25/18 04:19 07/25/18 04:19 Additional Labs: Accuchecks 07/26/18 07/26/18 07/25/18 11:03 05:28 20:29 POC Glucose 182 H 114 H 231 H 07/25/18 16:27 POC Glucose 152 H Phys Exam - Physical Examination HEENT: PERRLA Respiratory: no wheezing, no rales, no rhonchi, clear to auscultation bilateral Cardiovascular: RRR, no significant murmur, no rub + slight lift Gastrointestinal: soft, non-tender, no distention, positive bowel sounds Musculoskeletal: no edema, pulses present Neurological: non-focal, moves all 4 limbs Dx/Plan (1) Chest pain due to CAD Code(s): R07.9 - CHEST PAIN, UNSPECIFIED; I25.10 - ATHSCL HEART DISEASE OF [place] CORONARY ARTERY W/O ANG PCTRS Status: Acute (2) Multi-vessel coronary artery stenosis Code(s): I25.10 - ATHSCL HEART DISEASE OF [place] CORONARY ARTERY W/O ANG PCTRS Status: Acute (3) S/P CABG (coronary artery bypass graft) Code(s): Z95.1 - PRESENCE OF AORTOCORONARY BYPASS GRAFT Status: Acute (4) Essential hypertension Code(s): I10 - ESSENTIAL (PRIMARY) HYPERTENSION Status: Chronic (5) Diabetes mellitus type 2 in nonobese Code(s): E11.9 - TYPE 2 DIABETES MELLITUS WITHOUT COMPLICATIONS Status: Chronic - Plan * CAD- s/p CABG- clinically stable * HTN- blood pressure is controlled. Heart rate is however elevated- and Carvediolol has been added * He tells me he no longer smokes * DM- blood glucose is controlled * Disposition as per CV- surgery
[2018-07-26] MEDS: Atorvastatin Calcium 40 MG TAB PO SCH (21:22)
[2018-07-27] MEDS: Ibuprofen 200 MG TAB PO SCH ×3 (05:38→20:32)
[2018-07-27] MEDS: Carvedilol 3.125 MG TAB PO SCH ×2 (08:27→16:40)
[2018-07-27] MEDS: Lisinopril 2.5 MG TAB PO SCH (08:27)
[2018-07-27] MEDS: Aspirin 81 mg Enteric Coated Tablet PO SCH (08:28)
[2018-07-27] MEDS: Gabapentin 300 MG CAP PO SCH ×3 (08:28→20:32)
[2018-07-27] MEDS: Polyethylene Glycol 3350 17 GM Packet PO SCH (08:29)
--- NOTE | 2018-07-27 09:27 | PDOC.PN ---
- Subjective Encounter Start Date: 07/27/18 Encounter Start Time: 09:24 Mr. Jerez was seen today in follow-up of CAD and post CABG. He complains of progressive weakness in his left upper extremity. He also notes some pain in his neck, and some blurred vision as well. He does admit that his blood glucose had been running in the 500's before he came to the hospital. - Objective Resuscitation Status - Order Detail: 07/16/18 20:06 Resuscitation Status Routine Co-Sign Provider: Resuscitation Status: FULL: Full Resuscitation MAR Reviewed: Yes Vital Signs & Weight: Vital Signs (12 hours) Temp Pulse Resp BP Pulse Ox 07/27/18 08:27 98 100/68 07/27/18 03:08 98.0 F 91 18 95 Weight Weight 215 lb 8 oz Most Recent Monitor Data Heart Rate from ECG 108 NIBP 123/60 NIBP BP-Mean 81 Respiration from ECG 19 SpO2 97 I&O: 07/26/18 07/27/18 07/28/18 06:59 06:59 06:59 Intake Total 400 Balance 400 Result Diagrams: 07/25/18 04:19 07/25/18 04:19 Additional Labs: Accuchecks 07/27/18 07/26/18 07/26/18 05:22 23:20 20:25 POC Glucose 212 H 217 H 249 H 07/26/18 07/26/18 16:58 11:03 POC Glucose 128 H 182 H Phys Exam - Physical Examination HEENT: PERRLA, oral pharynx no lesions Respiratory: no wheezing, no rales, no rhonchi, clear to auscultation bilateral Cardiovascular: RRR, no significant murmur, no rub Gastrointestinal: soft, non-tender, no distention, positive bowel sounds Musculoskeletal: no edema, pulses present Neurological: moves all 4 limbs muscle strength is 5/5 in both upper extremities, but slightly weaker on the left, with a slight drift Psychiatric: normal affect Dx/Plan (1) Chest pain due to CAD Code(s): R07.9 - CHEST PAIN, UNSPECIFIED; I25.10 - ATHSCL HEART DISEASE OF [place] CORONARY ARTERY W/O ANG PCTRS Status: Acute (2) Left arm weakness Code(s): R29.898 - OTH SYMPTOMS AND SIGNS INVOLVING THE MUSCULOSKELETAL SYSTEM Status: Acute (3) Multi-vessel coronary artery stenosis Code(s): I25.10 - ATHSCL HEART DISEASE OF [place] CORONARY ARTERY W/O ANG PCTRS Status: Acute (4) S/P CABG (coronary artery bypass graft) Code(s): Z95.1 - PRESENCE OF AORTOCORONARY BYPASS GRAFT Status: Acute (5) Essential hypertension Code(s): I10 - ESSENTIAL (PRIMARY) HYPERTENSION Status: Chronic (6) Diabetes mellitus type 2 in nonobese Code(s): E11.9 - TYPE 2 DIABETES MELLITUS WITHOUT COMPLICATIONS Status: Chronic (7) Acute systolic heart failure Code(s): I50.21 - ACUTE SYSTOLIC (CONGESTIVE) HEART FAILURE Status: Acute - Plan * CAD s/p CABG- clinically stable He has been cleared for discharge from CV- Surgery standpoint * Left arm weakness- I suspect this is due to a cervical strain, from laying on the operating room stable- however, will check an MRI of his C-spine , and with the blurred vision, will also check an MRI of his brain * HTN- blood pressure is stable * DM- will continue Glipizide, and add Metformin to his regimen at discharge. * Acute systolic heart failure- compensated
[2018-07-27 10:32] LABS: Actual Bicarbonate (HCO3a) 24.2 mEq/L (22-28); Analyzer IN Cardio OR; Base Excess (BEa) -1.1 mEq/L (-2.0 to +3.0); CO2 Tension 42.7 mmHg (35.0-45.0); Calcium, Ionized 1.22 mmol/L (1.12-1.30); Carboxyhemoglobin (COHb) 0.7 gm% (0.0-3.0); Hemoglobin (Hb) 14.4 g/dL (14.0-18.0); O2 Tension (PaO2) 302.7 mmHg (80.0-100.0); pH, Arterial 7.37 (7.35-7.45)
[2018-07-27 10:32] LABS: Actual Bicarbonate (HCO3a) 21.5 mEq/L (22-28); Analyzer IN Cardio OR; Base Excess (BEa) -4.8 mEq/L (-2.0 to +3.0); CO2 Tension 44.7 mmHg (35.0-45.0); Calcium, Ionized 0.92 mmol/L (1.12-1.30); Carboxyhemoglobin (COHb) 0.3 gm% (0.0-3.0); Hemoglobin (Hb) 10.1 g/dL (14.0-18.0); O2 Tension (PaO2) 496.3 mmHg (80.0-100.0); Potassium - ABG Lab 4.26 mmol/L (3.70-5.30)
[2018-07-27 10:32] LABS: Actual Bicarbonate (HCO3v) 21 mEq/L (22-28); Analyzer IN Cardio OR; Base Excess -6.5 mEq/L (-2.0 to +3.0); Calcium, Ionized 1.17 mmol/L (1.16-1.32); Chloride (ABG LAB) 106 mmol/L (98-106); Hemoglobin (Hb) 13.5 g/dL (13.1-17.2); Potassium - ABG Lab 4.02 mmol/L (3.70-5.30); Sodium 135.9 mmol/L (133-146); pH (venous) 7.26 (7.32-7.43)
[2018-07-27 10:33] LABS: Actual Bicarbonate (HCO3v) 30 mEq/L (22-28); Analyzer IN Cardio OR; Base Excess 4.7 mEq/L (-2.0 to +3.0); Calcium, Ionized 0.97 mmol/L (1.16-1.32); Chloride (ABG LAB) 105 mmol/L (98-106); Hemoglobin (Hb) 9.5 g/dL (13.1-17.2); Potassium - ABG Lab 4.35 mmol/L (3.70-5.30); Sodium 138.5 mmol/L (133-146)
[2018-07-27 10:33] LABS: Actual Bicarbonate (HCO3a) 26.4 mEq/L (22-28); Analyzer IN Cardio OR; Base Excess (BEa) 1.8 mEq/L (-2.0 to +3.0); CO2 Tension 41.5 mmHg (35.0-45.0); Carboxyhemoglobin (COHb) 0.2 gm% (0.0-3.0); Hemoglobin (Hb) 9.4 g/dL (14.0-18.0); O2 Tension (PaO2) 387.4 mmHg (80.0-100.0); Potassium - ABG Lab 4.38 mmol/L (3.70-5.30); pH, Arterial 7.42 (7.35-7.45)
[2018-07-27 10:33] LABS: Actual Bicarbonate (HCO3a) 28.1 mEq/L (22-28); Analyzer IN Cardio OR; Base Excess (BEa) 3.1 mEq/L (-2.0 to +3.0); Calcium, Ionized 1.01 mmol/L (1.12-1.30); Carboxyhemoglobin (COHb) 0.3 gm% (0.0-3.0); Hemoglobin (Hb) 9.7 g/dL (14.0-18.0); Potassium - ABG Lab 4.44 mmol/L (3.70-5.30); pH, Arterial 7.41 (7.35-7.45)
[2018-07-27 10:34] LABS: Actual Bicarbonate (HCO3a) 25.7 mEq/L (22-28); Analyzer IN Cardio OR; Base Excess (BEa) 0.3 mEq/L (-2.0 to +3.0); CO2 Tension 44.9 mmHg (35.0-45.0); Carboxyhemoglobin (COHb) 0.2 gm% (0.0-3.0); Hemoglobin (Hb) 11.3 g/dL (14.0-18.0); O2 Tension (PaO2) 441.7 mmHg (80.0-100.0); Potassium - ABG Lab 3.74 mmol/L (3.70-5.30); pH, Arterial 7.38 (7.35-7.45)
[2018-07-27 10:37] LABS: Puncture Site A
[2018-07-27 10:38] LABS: Puncture Site A
[2018-07-27 10:40] LABS: Puncture Site A
[2018-07-27 10:40] LABS: Puncture Site A
[2018-07-27 10:51] LABS: O2 Tension (PaO2) 530.9 mmHg (80.0-100.0)
[2018-07-27 10:52] LABS: Puncture Site A
--- NOTE | 2018-07-27 10:53 | MRI ---
NONCONTRAST ENHANCED MRI BRAIN: HISTORY: Progressive left arm weakness and blurred vision. Multiplanar multisequence noncontrast enhanced MRI images of brain obtained. FINDINGS/IMPRESSION: Images demonstrate diffuse cortical atrophy and deep white matter ischemic changes. No evidence of intracranial mass lesions seen. Normal flow-void seen in the major intracranial vessels. No evidence of areas of diffusion restrictio n seen to suggest acute strokes. Transcribed Date/Time: 07/27/2018 11:57 AM
--- NOTE | 2018-07-27 12:48 | MRI ---
MRI CERVICAL SPINE WITHOUT CONTRAST: Multiplanar, multisequential imaging of cervical spine obtained. INDICATION: Neck pain. Left arm weakness. FINDINGS: The cervical vertebrae maintain normal height and alignment. There are mild to moderate degenerative changes noted with anterior osteophytes. Loss of disk space is noted at C4-5, C5-6, and C6-7 levels . At C2-3, no significant disk or spondylosis. At C3-4, posterior spondylosis effaces the anterior subarachnoid space. Mild left foraminal encroach ment due to uncinate hypertrophy. At C4-5, disk bulge and spondylosis is more prominent. These changes impinge and mildly flatten the anterior cord. They are more prominent to the left where there is left foraminal encroachment and st enosis. At C5-6, posterior disk bulge and spondylosis impinge on and mildly flatten the anterior cord. Bilat eral foraminal narrowing due to facet and uncinate hypertrophy, probably more prominent on the left. At C6-7, mild spondylosis flattens the thecal sac and mildly effaces the anterior subarachnoid space. No cord impingement. Mild bilateral foraminal narrowing due to uncinate hypertrophy. Cord signal is normal. IMPRESSION: Posterior spondylosis most prominent at C4-5, C5, and C5-6 with description at each level noted above . POS: [facility]
[2018-07-27] MEDS: Insulin Regular 300 UNITS/3 ML VIAL SC PRN (12:54)
--- NOTE | 2018-07-27 14:29 | PDOC.CTH ---
Cardiology Progress Note - Objective Vital Signs Temp Pulse Pulse Pulse Resp BP BP 07/27/18 09:45 96 93 134/78 07/27/18 08:27 98 100/68 07/27/18 08:00 07/27/18 03:08 98.0 F 91 18 BP Pulse Ox Pulse Ox Pulse Ox 07/27/18 09:45 115/81 98 96 07/27/18 08:27 07/27/18 08:00 98 07/27/18 03:08 95 Weight 215 lb 8 oz 07/26/18 07/27/18 07/28/18 06:59 06:59 06:59 Intake Total 400 Balance 400 - Labs Result Diagrams: 07/25/18 04:19 07/25/18 04:19 Troponin/CKMB Troponin I Less than 0.010 ng/mL (< 0.028) 07/16/18 19:32 - Assessment/Plan CAD s/p CABG DM HLD HTN Tobacco abuse REC: 07/22 IP and PT Statin, BB and ASA Stop smoking REC: 07/24 Pt transferred to Tele Continue 2nd RF modification IS and ambulation
[2018-07-27] MEDS: Atorvastatin Calcium 40 MG TAB PO SCH (20:32)
[2018-07-28] MEDS: Ibuprofen 200 MG TAB PO SCH ×3 (05:33→20:42)
[2018-07-28] MEDS: Carvedilol 3.125 MG TAB PO SCH ×2 (08:49→18:10)
[2018-07-28] MEDS: Lisinopril 2.5 MG TAB PO SCH (08:50)
[2018-07-28] MEDS: Gabapentin 300 MG CAP PO SCH ×4 (08:51→20:45)
[2018-07-28] MEDS: Aspirin 81 mg Enteric Coated Tablet PO SCH (08:51)
[2018-07-28] MEDS: Polyethylene Glycol 3350 17 GM Packet PO SCH (08:53)
--- NOTE | 2018-07-28 12:26 | PDOC.PN ---
- Subjective Encounter Start Date: 07/28/18 Encounter Start Time: 12:21 Mr. Jerez was seen today in follow-up of CAD s/p CABG. - Objective Resuscitation Status - Order Detail: 07/16/18 20:06 Resuscitation Status Routine Co-Sign Provider: Resuscitation Status: FULL: Full Resuscitation MAR Reviewed: Yes Vital Signs & Weight: Vital Signs (12 hours) Temp Pulse Resp BP BP Pulse Ox 07/28/18 08:50 93 135/93 H 07/28/18 04:04 98 F 93 17 125/69 98 Weight Weight 215 lb 8 oz Most Recent Monitor Data Heart Rate from ECG 108 NIBP 123/60 NIBP BP-Mean 81 Respiration from ECG 19 SpO2 97 I&O: 07/27/18 07/28/18 07/29/18 06:59 06:59 06:59 Intake Total 400 Balance 400 Result Diagrams: 07/25/18 04:19 07/25/18 04:19 Additional Labs: Accuchecks 07/28/18 07/27/18 07/27/18 05:33 20:06 16:42 POC Glucose 212 H 143 H 131 H Phys Exam - Physical Examination HEENT: PERRLA Respiratory: no wheezing, no rales, no rhonchi, clear to auscultation bilateral Cardiovascular: RRR, no significant murmur, no rub Gastrointestinal: soft, non-tender, no distention, positive bowel sounds Musculoskeletal: no edema Dx/Plan (1) Chest pain due to CAD Code(s): R07.9 - CHEST PAIN, UNSPECIFIED; I25.10 - ATHSCL HEART DISEASE OF [place] CORONARY ARTERY W/O ANG PCTRS Status: Acute (2) Left arm weakness Code(s): R29.898 - OTH SYMPTOMS AND SIGNS INVOLVING THE MUSCULOSKELETAL SYSTEM Status: Acute (3) Multi-vessel coronary artery stenosis Code(s): I25.10 - ATHSCL HEART DISEASE OF [place] CORONARY ARTERY W/O ANG PCTRS Status: Acute (4) S/P CABG (coronary artery bypass graft) Code(s): Z95.1 - PRESENCE OF AORTOCORONARY BYPASS GRAFT Status: Acute (5) Essential hypertension Code(s): I10 - ESSENTIAL (PRIMARY) HYPERTENSION Status: Chronic (6) Diabetes mellitus type 2 in nonobese Code(s): E11.9 - TYPE 2 DIABETES MELLITUS WITHOUT COMPLICATIONS Status: Chronic (7) Acute systolic heart failure Code(s): I50.21 - ACUTE SYSTOLIC (CONGESTIVE) HEART FAILURE Status: Acute - Plan * CAD- patient is s/p CABG * HTN- blood pressure is stable * DM- blood glucose is a bit elevated- will add Metformin * Stable for discharge.
[2018-07-28] MEDS: Atorvastatin Calcium 40 MG TAB PO SCH (20:42)
[2018-07-29] MEDS: Ibuprofen 200 MG TAB PO SCH (05:48)
[2018-07-29 07:25] VITALS: BP 127/90; TEMP 98.2
[2018-07-29] MEDS: Aspirin 81 mg Enteric Coated Tablet PO SCH (08:26)
[2018-07-29] MEDS: Carvedilol 3.125 MG TAB PO SCH (08:26)
[2018-07-29] MEDS: Gabapentin 300 MG CAP PO SCH (08:26)
[2018-07-29] MEDS: Lisinopril 2.5 MG TAB PO SCH (08:26)
[2018-07-29] MEDS: Polyethylene Glycol 3350 17 GM Packet PO SCH (08:31)
--- NOTE | 2018-07-30 07:47 | DIS ---
DATE OF ADMISSION: 07/18/2018 DATE OF DISCHARGE: 07/29/2018 PRIMARY CARE PHYSICIAN: Dr. Satinder Flanagan. DISCHARGE DISPOSITION: Home. PRIMARY DISCHARGE DIAGNOSES: 1. Acute coronary syndrome. 2. Three-vessel coronary artery disease. 3. Status post bypass surgery. 4. Hypertension. 5. Hyperlipidemia. 6. Diabetes mellitus type 2, uncontrolled. 7. Cervical strain. DISCHARGE MEDICATIONS: Include; 1. Metformin 500 mg twice daily. 2. [place] 10/325 three times a day as needed for pain. 3. Neurontin 300 mg t.i.d. 4. Chlorthalidone 25 mg daily. 5. Multivitamin one tablet daily. 6. Tizanidine 4 mg twice a day. 7. Chantix 1 mg daily. 8. Amlodipine 5 mg daily. 9. Aspirin 81 mg daily. 10. Lipitor 40 mg at bedtime. 11. Coreg 6.25 mg twice daily. 12. Glipizide 5 mg twice daily. 13. Lisinopril 2.5 mg daily. PROCEDURES DONE DURING ADMISSION: The patient had a nuclear stress test showing evidence of posterior wall scar. There was no evidence of ischemia, but the ejection fraction was low at 36% and there was global hypokinesis. The patient had a cardiac catheterization and this demonstrated left main and three-vessel coronary artery disease, severely impaired left ventricular function. The patient had an echocardiogram in which the EF was visualized at 30% to 35%. There was E/A flow reversal noted, suggestive of diastolic dysfunction. The patient had a repeat echo on 07/25/2018 and this showed an ejection fraction of 30% to 40%, impaired relaxation. The patient had an MRI of the brain, which was negative for any acute intracranial abnormalities and the patient had an MRI of the cervical spine showing posterior spondylosis and other degenerative changes. CODE STATUS: Full code. ALLERGIES: NO KNOWN DRUG ALLERGIES. HOSPITAL COURSE: Mr. Jerez is a pleasant 58-year-old gentleman who presented to the emergency room complaining of chest pain as well as shortness of breath. The patient underwent a nuclear stress test which showed a low ejection fraction and some global hypokinesis. For this reason, Cardiology was consulted. He underwent cardiac catheterization. He was found to have left main as well as three-vessel coronary artery disease. He was seen by Vascular Surgery as a result of these findings and underwent bypass surgery. He had mostly an uneventful postoperative course except he noticed some numbness in his left hand and arm as well as some neck pain. For this reason, an MRI was done and he was found to have some degenerative changes there. He had no muscle weakness even though he has some subjective weakness and I suspect that this would resolve spontaneously and it was likely related to a cervical strain. MRI of the brain was negative. I suspect some visual changes were due to the initially elevated blood glucoses in the 400 and 500 range and these were then brought down to close to normal in the low 200s and 100s. This should resolve as his blood glucose improves and stays consistent. Once home health arrangements were made, the patient was discharged home and will have close outpatient followup with his primary care physician and also with Cardiology as well. Job ID: [id number]
--- NOTE | 2018-07-30 16:51 | PQF ---
PETERSON GLEZ TONI MD [id number] [facility]-231 [id number] CLINICAL DOCUMENTATION CLARIFICATION FORM: POST DISCHARGE Please exercise your independent, professional judgment in responding to the clarification form. Clinical indicators are provided on the bottom of this form for your review Please check appropriate box(s): Conflicting documentation was noted in the Medical Record, please clarify if patient is being treated/monitored for: HEART FAILURE A. TYPE: [ X ] Systolic / HFrEF [ ] Diastolic / HFpEF [ ] Combined Systolic / Diastolic B. ACUITY [ ] Acute [ X ] Acute on Chronic [ ] Chronic [ ] Other diagnosis [ ] Unable to determine In addition, please specify: Present on Admission (POA): [ X ] Yes [ ] No [ ] Unable to determine CLINICAL INDICATORS - SIGNS / SYMPTOMS / LABS 07/28 PROGRESS NOTE ASSESSMENT, "ACUTE SYSTOLIC HEART FAILURE" 07/21 PROGRESS NOTE ASSESSMENT, "CHRONIC COMBINED SYSTOLIC AND DIASTOLIC HEART FAILURE" 07/25 ECHO Ejection Fraction =30-40 % 07/16 H&P CHIEF COMPLAINT: SOB 07/16 CHEST X-RAY, "BILATERAL PERIHILAR INTERSTITIAL PROMINENCE WITH MILD ENLARGEMENT OF CENTRAL PULMONARY VASCULATURE, THIS MAY REPRESENT FLUID OVERLOAD " RISKS: 07/29 DISCHARGE SUMMARY: CAD/ACUTE CORONARY SYNDROME Hypertension CABG TREATMENTS: 07/21 Cardiac monitoring / telemetry EKG 07/17 ECHO, 07/25 REPEAT ECHO (This form is maintained as a part of the permanent medical record) 2014 [employer], [facility]. All Rights Reserved Tonie [email or web address] [phone] MTDD
== END 2018-07-29 09:03 | disposition home health service (06) | DRG 233 ==
LOC: ERS 11:21 → 2SW 17:08 → OBSVTOIN 07-18 10:44 → CCU 07-21 08:54 → 2NO 07-23 21:32
PROVIDERS: ADMIT Internal Medicine; ATTEND Internal Medicine
PROC: 4A023N7 Measurement of Cardiac Sampling and Pressure, Left Heart, Percutaneous Approach (ICD-10-PCS; principal; 2018-07-20)
PROC: B2111ZZ Fluoroscopy of Multiple Coronary Arteries using Low Osmolar Contrast (ICD-10-PCS; 2018-07-20)
PROC: B2151ZZ Fluoroscopy of Left Heart using Low Osmolar Contrast (ICD-10-PCS; 2018-07-20)
PROC: 02100Z9 Bypass Coronary Artery, One Artery from Left Internal Mammary, Open Approach (ICD-10-PCS; 2018-07-21)
PROC: 021109W Bypass Coronary Artery, Two Arteries from Aorta with Autologous Venous Tissue, Open Approach (ICD-10-PCS; 2018-07-21)
PROC: 06BQ4ZZ Excision of Left Saphenous Vein, Percutaneous Endoscopic Approach (ICD-10-PCS; 2018-07-21)
PROC: 5A1221Z Performance of Cardiac Output, Continuous (ICD-10-PCS; 2018-07-21)
PROC: 04HY32Z Insertion of Monitoring Device into Lower Artery, Percutaneous Approach (ICD-10-PCS; 2018-07-21)
DX: I24.9 Acute ischemic heart disease, unspecified (principal); I50.23 Acute on chronic systolic (congestive) heart failure; E87.1 Hypo-osmolality and hyponatremia; N17.9 Acute kidney failure, unspecified; I25.10 Atherosclerotic heart disease of native coronary artery without angina pectoris; I11.0 Hypertensive heart disease with heart failure; S16.1XXA Strain of muscle, fascia and tendon at neck level, initial encounter; E11.65 Type 2 diabetes mellitus with hyperglycemia; I25.5 Ischemic cardiomyopathy; E78.00 Pure hypercholesterolemia, unspecified; L90.5 Scar conditions and fibrosis of skin; S41.15 Open bite of upper arm; E66.9 Obesity, unspecified; Z68.31 Body mass index [BMI] 31.0-31.9, adult; Z79.84 Long term (current) use of oral hypoglycemic drugs; Z79.82 Long term (current) use of aspirin; Z87.891 Personal history of nicotine dependence
CPT/HCPCS: 36415; 36416; 36430; 70551; 71045; 72141; 78452; 80048; 80053; 80061; 81003; 82010; 82550; 82805; 83036; 83690; 83735; 84484; 85025; 85027; 85347; 85610; 85730; 86850; 86900; 86901; 93005; 93010; 93017; 93306; 93458; 93798; 94760; 96360; 96361; 99152; A9500; C1769; J0153; J1642; J1644; J1650; J1815; J1825; J1885; J1940; J2001; J2150; J2250; J2370; J2405; J2440; J2720; J3010; J3370; J3475; J3480; J3490; J7050; P9045; Q0162; Q9967; S0017; S0028

== ENCOUNTER 2018-09-23 12:32 | Observation (INO) | payer MEDICARE, MEDICAID ==
[~2018-09-23 12:32] MED LIST: ISOVUE-370 76%-LOCM 1 ML ONE
[2018-09-23 13:10] LABS: #Basophils 0.1 thou/uL (0.0-0.2); #Eosinphils 0.3 thou/uL (0.0-0.7); #Lymphocytes 2.7 thou/uL (1.20-3.40); #Monocytes 0.6 thou/uL (0.11-0.59); #Neutrophils 6.1 thou/uL (1.40-6.50); %Basophils 0.6 % (0.0-1.0); %Eosinophils 3.1 % (0.0-10.0); %Lymphocytes 27.4 % (21.0-51.0); %Monocytes 6.5 % (0.0-10.0); %Neutrophils 62.3 % (42.0-75.0); Hemoglobin 13.8 g/dL (14.0-18.0); Mean Corpuscular HGB CONC 32.1 g/dL (32.0-36.0); Mean Corpuscular Hemoglobin 27.2 pg (27.0-31.0); Mean Corpuscular Volume 84.9 fL (78.0-98.0); Mean Platelet Volume 7.5 fL (7.4-10.4); Platelet Count 218 thou/uL (130-400); Red Blood Cell (RBC) Count 5.06 mill/uL (4.70-6.10); White Blood Cell (WBC) Count 9.7 thou/uL (4.8-10.8)
--- NOTE | 2018-09-23 13:21 | RAD ---
RADIOGRAPH CHEST 1 VIEW: DATE: 09/23/2018 HISTORY: 58-year-old male with cardiac dysrhythmia. FINDINGS: There are no airspace densities, pulmonary edema, pneumothorax, or cardiomegaly. The lateral costophr enic angles are sharp. Sternotomy wires. Surgical clips over left upper cardiac shadow. IMPRESSION: 1. No acute cardiopulmonary findings. 2. Evidence of previous coronary artery bypass graft surgery is evidence for coronary atherosclerotic disease.
[2018-09-23 13:32] LABS: ALT (SGPT) 22 U/L (8-55); AST (SGOT) 15 U/L (5-34); Albumin 4.1 g/dL (3.5-5.0); Alkaline Phosphatase 105 U/L (40-150); Anion Gap 14 mmol/L (10-20); BUN (Urea Nitrogen) 20 mg/dL (8.4-25.7); Bilirubin, Total 0.2 mg/dL (0.2-1.2); CK (CPK) 93 U/L (30-200); Calc. Creatinine Clearance 0 mL/min (70-130); Calcium 9.8 mg/dL (7.8-10.44); Carbon Dioxide 22 mmol/L (22-29); Chloride 105 mmol/L (98-107); Estimated GFR-MDRD 61; Globulin 3.5 g/dL (2.4-3.5); Glucose 65 mg/dL (70-105); Lipase 51 U/L (8-78); Potassium 4.2 mmol/L (3.5-5.1); Protein, Total 7.6 g/dL (6.0-8.3); Sodium 137 mmol/L (136-145)
--- NOTE | 2018-09-23 15:48 | CT ---
CT PULMONARY ANGIOGRAM WITH IV CONTRAST AND 3D POSTPROCESSING: HISTORY: Chest pain and shortness of breath. FINDINGS: There is good contrast opacification of the pulmonary arterial vasculature. There is a small central filling defect in the distal aspect of the left lower lobe artery with extension at the level of the branching. This may either be due to an embolus or inadequate mixing of contrast with blood. The thoracic aorta is well opacified without aneurysm or dissection. No pleural or pericardial effus ions are seen. No pneumothoraces, focal areas of consolidation, lung nodules, or masses are seen. IMPRESSION: Probable small pulmonary embolus in the left lower lobe artery versus artifact. Discussed over the telephone with ER physician, Dr. Abdulkadir Escalona, at 3:35 p.m. MARKELL CEDENO
[2018-09-23] MEDS ORDERED: Enoxaparin Sodium 100 MG/ML SYRINGE ONE (16:19)
[2018-09-23 18:20] VITALS: BMI 29.9
[2018-09-23] MEDS ORDERED: Ondansetron ODT 4 MG TAB SL PRN (18:22)
[2018-09-23] MEDS ORDERED: Ondansetron PF 4 MG/2 ML Vial IVP PRN ×2 (18:22→18:42)
[2018-09-23] MEDS ORDERED: HumaLOG 300 UNITS/3 ML VIAL SC PRN ×2 (18:42)
[2018-09-23] MEDS ORDERED: Dextrose 50% Abboject 50 ML SYRINGE SLOW IVP PRN (18:42)
[2018-09-23] MEDS ORDERED: Acetaminophen 650 MG Suppository PR PRN (18:42)
[2018-09-23] MEDS ORDERED: Ondansetron ODT 4 MG TAB PO PRN (18:42)
[2018-09-23] MEDS ORDERED: Acetaminophen 325 MG TAB PO PRN (18:42)
[2018-09-23] MEDS ORDERED: Senokot S 8.6-50 MG TAB PO PRN (18:42)
[2018-09-23] MEDS ORDERED: Dextrose 5% in Water 1,000 ML IV PRN (18:42)
[2018-09-23] MEDS ORDERED: Guaifenesin DM 100-10/5 ML UDCUP PO PRN (18:42)
--- NOTE | 2018-09-23 19:46 | HP ---
PRIMARY CARE PHYSICIAN: Dr. Satinder Flanagan at [facility]. CHIEF COMPLAINT: Chest pain and ectopic beat. HISTORY OF PRESENT ILLNESS: This is a 58-year-old male, who was here a couple of months ago with severe coronary artery disease and had a CABG. The patient also has been disabled from a severe scarred dog bite on his right upper extremity and is on chronic pain medication for that. He reports that ever since his discharge from the hospital after his CABG earlier in the year, he has had chest pain. The chest pain comes and goes. It is worse with movement and with palpation of the chest wall. He also has had a neck pain and pain in his left hand along with some numbness ever since the surgery, though he had an MRI done during hospitalization, which showed degenerative changes, and it was thought he had a neck strain during the surgery. The patient reports that his chest pain got a little more persistent for the last 2 days associated with a little bit of nausea, but no vomiting and that he was noted on the blood pressure monitor by his home health nurse to be having some ectopic beats. He did not fully feel palpitations at that time, but was just feeling bad, so he came into the hospital. In the emergency room, his troponin was negative. His EKG does not show any arrhythmias. However, D-dimer was elevated, so the patient was given a CT angio. This showed a probable small left lower lobe pulmonary embolism. His vital signs were normal in the emergency room without any tachycardia, no hypoxia. He appears in no distress. I did discuss with him possibility of just discharging him in the emergency room with Eliquis; however, he stated he just felt bad and would like to stay, so we will observe him overnight on the telemetry wing. PAST MEDICAL HISTORY: 1. Diabetes mellitus type 2. 2. Coronary artery disease. 3. Hyperlipidemia. 4. Hypertension. PAST SURGICAL HISTORY: 1. Right elbow and right hand pain for dog bite with rhabdomyolysis. 2. Back surgery. 3. Coronary artery bypass grafting three-vessel. SOCIAL HISTORY: The patient is a previous smoker, quit in March of 2018. No alcohol or illicit drug use. He is currently disabled. ALLERGIES: NO KNOWN DRUG ALLERGIES. CURRENT MEDICATIONS: 1. Amlodipine 10 mg daily. 2. Aspirin 81 mg daily. 3. Atorvastatin 40 mg at night. 4. Carvedilol 6.25 mg twice a day. 5. Chlorthalidone 25 mg daily. 6. Glucotrol XL 5 mg twice a day. 7. [place] 10/325 mg one tablet three times a day as needed for pain. 8. Lisinopril 2.5 mg daily. 9. Metformin 500 mg twice a day. 10. Centrum Silver 1 tablet daily. 11. Tizanidine 4 mg twice a day. REVIEW OF SYSTEMS: CONSTITUTIONAL: No fevers. No chills. EYES: No double vision or blurred vision. ENT: No congestion, drainage, or sore throat. CARDIOVASCULAR: See HPI. PULMONARY: No coughing, wheezing, or shortness of breath. GASTROINTESTINAL: Nausea. No vomiting. No diarrhea. No abdominal pain. No constipation. GENITOURINARY: No dysuria or hematuria. MUSCULOSKELETAL: See HPI. SKIN: No rashes or lesions are noted. NEUROLOGIC: See HPI. No other numbness, tingling, or focal weakness. PHYSICAL EXAMINATION: VITAL SIGNS: Blood pressure 137/92, pulse 92, respirations 18, temperature 98.0 , and O2 saturation 100% on room air. GENERAL: This is a well-developed, obese male, in no acute distress. HEENT: Pupils are equal, round, and reactive to light. Oropharynx clear without lesions, erythema, or exudate. NECK: Supple. No lymphadenopathy. No thyroid nodules or enlargement. No JVD. HEART: Regular rate and rhythm. No murmurs, rubs, or gallops. LUNGS: Clear to auscultation bilaterally. No wheezes, crackles, or rhonchi. ABDOMEN: Soft and nontender to palpation. Normoactive bowel sounds. No hepatosplenomegaly or other masses. CHEST: Chest wall tender to palpation diffusely across the front. This reproduces his chest pain. EXTREMITIES: No clubbing, cyanosis, or edema. He does have scarring on his right upper extremity from his previous dog bite and multiple surgeries and has some decreased mobility in his fingers of his right hand. SKIN: No rashes or other lesions noted. NEUROLOGIC: He has some decreased strength in his right upper extremity. Otherwise, his neurologic exam is intact. PSYCHIATRIC: Alert and oriented x3. Normal mood and affect. LABORATORY DATA: CBC within normal limits. D-dimer is elevated at 2.1. Complete metabolic panel is notable only for creatinine of 1.44, stable with what it was last month and a glucose of 65. The rest of the CMP was normal. Troponin was negative and his brain natriuretic peptide was normal. CT of the chest, see HPI. Chest x-ray, I did review the chest x-ray done in the emergency room along with the radiologist's report. This shows no acute cardiopulmonary process, just the evidence of previous coronary artery bypass grafting. EKG: I did review the EKG done in the ER. It shows normal sinus rhythm, no arrhythmia, no evidence right heart strain, no significant ST segment changes. ASSESSMENT AND PLAN: 1. Acute pulmonary embolism, likely secondary to his recent surgery, I am not certain if this is actually causing any of his symptoms. He has had some chronic musculoskeletal pain of his chest wall since the surgery. He is a little nauseated now, which may be related to the pulmonary embolism. He was given a full dose of Lovenox in the emergency room. We will start him on Eliquis 10 mg twice a day for the first week first dose tomorrow morning. His EKG shows no significant changes or evidence of cardiac strain from the PE. We will watch him on the quality assurance monitor overnight. If he has no significant arrhythmias or other vital sign abnormalities, he can likely be discharged home tomorrow. 2. Coronary artery disease. We will resume the patient's statin, aspirin, and blood pressure medications. 3. Hypertension. Resume the patient's blood pressure medications. 4. Diabetes mellitus type 2. We will resume the patient's oral hypoglycemics and check fingerstick blood sugars before meals and at bedtime with a low insulin sliding scale. 5. Gastrointestinal prophylaxis. The patient is on Pepcid twice a day. 6. Deep venous thrombosis prophylaxis. The patient is already on anticoagulation. 7. Code status. I did discuss this with the patient, he is a full code. Should he be incapacitated, his nieces to be his medical decision makers, their names are Noni Jerez, who is present in the room and Keli Arriola. Job ID: [id number] [facility]
[2018-09-23] MEDS ORDERED: diphenhydrAMINE 50 MG/ML VIAL IVP SCH (20:00)
[2018-09-23] MEDS ORDERED: Atorvastatin Calcium 40 MG TAB PO SCH (21:00)
[2018-09-23] MEDS: tiZANidine HCl 4 MG TAB PO SCH (21:10)
[2018-09-23] MEDS: Famotidine 20 MG TAB PO SCH (21:10)
[2018-09-24] MEDS: HYDROcodone/Acetaminophen 10/325 mg Tablet PO PRN ×2 (01:14→10:17)
[2018-09-24] MEDS: diphenhydrAMINE 25 MG CAP PO PRN ×2 (04:55→10:17)
[2018-09-24] MEDS ORDERED: Ketorolac Tromethamine 30 MG/ML VIAL IVP SCH (05:00)
[2018-09-24 05:34] LABS: #Basophils 0.1 thou/uL (0.0-0.2); #Eosinphils 0.3 thou/uL (0.0-0.7); #Lymphocytes 3.4 thou/uL (1.20-3.40); #Monocytes 0.7 thou/uL (0.11-0.59); #Neutrophils 4.8 thou/uL (1.40-6.50); %Monocytes 7.3 % (0.0-10.0); %Neutrophils 51.7 % (42.0-75.0); Hemoglobin 13.2 g/dL (14.0-18.0); Mean Corpuscular HGB CONC 31.4 g/dL (32.0-36.0); Mean Corpuscular Hemoglobin 26.6 pg (27.0-31.0); Mean Corpuscular Volume 84.7 fL (78.0-98.0); Mean Platelet Volume 7.9 fL (7.4-10.4); Platelet Count 238 thou/uL (130-400); RBC Distribution Width 14.1 % (11.5-14.5); Red Blood Cell (RBC) Count 4.96 mill/uL (4.70-6.10); White Blood Cell (WBC) Count 9.2 thou/uL (4.8-10.8)
[2018-09-24 05:54] LABS: Anion Gap 14 mmol/L (10-20); BUN (Urea Nitrogen) 18 mg/dL (8.4-25.7); Calc. Creatinine Clearance 81 mL/min (70-130); Calcium 9.2 mg/dL (7.8-10.44); Carbon Dioxide 18 mmol/L (22-29); Chloride 108 mmol/L (98-107); Estimated GFR-MDRD 70; Glucose 131 mg/dL (70-105); Potassium 4.2 mmol/L (3.5-5.1); Sodium 136 mmol/L (136-145)
[2018-09-24] MEDS ORDERED: metFORMIN 500 MG TAB PO SCH (08:00)
[2018-09-24] MEDS ORDERED: Carvedilol 6.25 MG TAB PO SCH (08:00)
--- NOTE | 2018-09-24 08:25 | PDOC.PN ---
- Subjective Encounter Start Date: 09/24/18 Encounter Start Time: 10:00 Subjective: Patient with persistent pain, mosly in the anterior left shoulder and -: down to pec minor on chest wall, TTP reproduces pain. No more nausea. -: No SOB/Cough. No other complaints. - Objective Resuscitation Status - Order Detail: 09/23/18 18:35 Resuscitation Status Routine Resuscitation Status: FULL: Full Resuscitation Discussed with: Patient MAR Reviewed: Yes Vital Signs & Weight: Vital Signs (12 hours) Temp Pulse Resp BP Pulse Ox 09/24/18 04:03 98.2 F 94 16 120/75 98 09/23/18 23:55 97.9 F 90 16 109/76 100 Weight Weight 197 lb I&O: 09/23/18 09/24/18 09/25/18 06:59 06:59 06:59 Intake Total 480 Balance 480 Result Diagrams: 09/24/18 04:20 09/24/18 04:20 Additional Labs: Accuchecks 09/23/18 21:18 POC Glucose 145 H Phys Exam - Physical Examination Constitutional: NAD HEENT: moist MMs Respiratory: no wheezing, no rales, no rhonchi TTP left upper lateral chest and shoulder Cardiovascular: RRR, no significant murmur Gastrointestinal: soft, positive bowel sounds Musculoskeletal: no edema Neurological: non-focal, moves all 4 limbs Psychiatric: normal affect, A&O x 3 Dx/Plan (1) Pulmonary embolism Code(s): I26.99 - OTHER PULMONARY EMBOLISM WITHOUT ACUTE COR PULMONALE Status : Acute Qualifiers: Chronicity: acute Comment: small left lower lobe, starting oral Eliquis this morning (2) CAD (coronary artery disease) Code(s): I25.10 - ATHSCL HEART DISEASE OF [place] CORONARY ARTERY W/O ANG PCTRS Status: Chronic (3) S/P CABG x 3 Code(s): Z95.1 - PRESENCE OF AORTOCORONARY BYPASS GRAFT Status: Chronic Comment: 06/2018 (4) Diabetes mellitus type 2 in obese Code(s): E11.69 - TYPE 2 DIABETES MELLITUS WITH OTHER SPECIFIED COMPLICATION; E66.9 - OBESITY, UNSPECIFIED Status: Chronic Comment: controlled (5) Dyslipidemia Code(s): E78.5 - HYPERLIPIDEMIA, UNSPECIFIED Status: Chronic (6) Essential hypertension Code(s): I10 - ESSENTIAL (PRIMARY) HYPERTENSION Status: Chronic Comment: controlled (7) Left shoulder pain Code(s): M25.512 - PAIN IN LEFT SHOULDER Status: Chronic - Plan cont current plan of care Can d/c today, f/u Dr. Perry outpatient, needs 3 months of -: anticoagulation * . - Discharge Day Encounter end time: 10:20
[2018-09-24] MEDS ORDERED: Lisinopril 2.5 MG TAB PO SCH (09:00)
[2018-09-24] MEDS ORDERED: Amlodipine 5 MG TAB PO SCH (09:00)
[2018-09-24] MEDS ORDERED: Apixaban 5 MG TAB PO SCH (09:00)
[2018-09-24] MEDS ORDERED: Multivitamin W/ Minerals 1 TAB PO SCH (09:00)
[2018-09-24] MEDS ORDERED: Aspirin 81 mg Enteric Coated Tablet PO SCH (09:00)
[2018-09-24] MEDS ORDERED: Chlorthalidone 25 MG TAB PO SCH (09:00)
[2018-09-24] MEDS ORDERED: Ibuprofen 200 MG TAB PO SCH (09:30)
[2018-09-24] MEDS: tiZANidine HCl 4 MG TAB PO SCH (10:18)
[2018-09-24] MEDS: Famotidine 20 MG TAB PO SCH (10:18)
[2018-09-24 12:33] VITALS: BP 112/76; TEMP 98.1
--- NOTE | 2018-09-25 03:34 | DIS ---
DATE OF ADMISSION: 09/23/2018 DATE OF DISCHARGE: 09/24/2018 PRIMARY CARE PHYSICIAN: Satinder Flanagan. REASON FOR ADMISSION: Pulmonary embolism. DIAGNOSES AT DISCHARGE: 1. Pulmonary embolism, on Eliquis. 2. Coronary artery disease. 3. Status post coronary artery bypass graft, three-vessel. 4. Diabetes mellitus, type 2. 5. Dyslipidemia. 6. Essential hypertension. 7. Left neck and shoulder strain. PROCEDURES: CTA of the chest and thorax showing a probable small pulmonary embolism in the left lower lobe artery versus artifact. CONSULTATIONS: None. SUMMARY OF HOSPITAL COURSE: This is a 58-year-old male who was here a couple of months ago for severe coronary artery disease and had a CABG. Post CABG, he also had some persistent left neck, shoulder, and arm pain. He had an MRI that just showed degenerative disease. He was discharged. He reports that he has had a chest pain on and off, especially in the upper left chest, near his shoulder. Since then, has also had some anterior chest wall pain on and off as well. The pain got worse a couple of days ago, but it appears to be the same pain he was having before, associated with a little bit of nausea. He just felt bad, so he came into the emergency room. In the ER, he had an elevated D-dimer, so a CTA was done that showed a probable small pulmonary embolism. He had no changes on his EKG and his vital signs were all normal. The patient was given Lovenox in the emergency room and was observed overnight in the hospital with no abnormalities on his EKG or telemetry monitoring. He did have the persistent pain in his left upper chest, left arm, left shoulder, and left side of his neck, but no other symptoms. The patient was converted to Eliquis this morning and is being discharged home. DISCHARGE MANAGEMENT: 1. Location: Discharged home. 2. Followup: Follow up with Dr. Perry's office as scheduled on October 07 for continued anticoagulants. 3. Activity: As tolerated. 4. Diet: Diabetic diet. MEDICATIONS: 1. Eliquis 5 mg tablets, 2 tablets twice a day for the 1st 7 days followed by 1 tablet twice a day after that, 74 tablets dispensed. 2. Zofran 4 mg every 6 hours as needed for nausea and vomiting, 15 tablets dispensed. 3. Protonix 20 mg daily, 30 tablets dispensed for prevention of gastritis or GI bleeding. 4. Continue amlodipine 5 mg daily. 5. Aspirin 81 mg daily. 6. Atorvastatin 40 mg at night. 7. Carvedilol 6.25 mg twice a day. 8. Chlorthalidone 25 mg daily. 9. Glucotrol XL 5 mg twice a day. 10. [place] 10/325 mg one tablet 3 times a day as needed for pain. 11. Can add zevd-[id number] ibuprofen, no more than 400 mg 3 times a day with that. 12. Lisinopril 2.5 mg daily. 13. Metformin 500 mg twice a day. 14. Centrum Silver tablet one tablet daily. 15. Tizanidine 4 mg twice a day. Job ID: [id number]
--- NOTE | 2018-09-25 12:56 | EKG ---
Test Reason : Blood Pressure : / mmHG Vent. Rate : 093 BPM Atrial Rate : 093 BPM P-R Int : 178 ms QRS Dur : 102 ms QT Int : 350 ms P-R-T Axes : 071 010 068 degrees QTc Int : 435 ms Normal sinus rhythm Possible Left atrial enlargement Inferior infarct , age undetermined Abnormal ECG Confirmed by MATA ANGEL, BRANT ([id number]), photography editor BOB NASCIMENTO ([id number]) on 09/25/2018 12:55:55 PM Referred By: Confirmed By:BRANT AUGUST MD
== END 2018-09-24 13:46 | disposition home or self-care (01) ==
LOC: ERS 12:32 → 2SW 18:02
PROVIDERS: ADMIT Emergency Medicine; ATTEND Emergency Medicine
DX: I26.99 Other pulmonary embolism without acute cor pulmonale (principal); I25.10 Atherosclerotic heart disease of native coronary artery without angina pectoris; E11.9 Type 2 diabetes mellitus without complications; E78.5 Hyperlipidemia, unspecified; I10 Essential (primary) hypertension; S16.1XXA Strain of muscle, fascia and tendon at neck level, initial encounter; S46.912A Strain of unspecified muscle, fascia and tendon at shoulder and upper arm level, left arm, initial encounter; I25.2 Old myocardial infarction; E66.9 Obesity, unspecified; Z95.1 Presence of aortocoronary bypass graft; Z87.891 Personal history of nicotine dependence; Z68.30 Body mass index [BMI] 30.0-30.9, adult; Z79.84 Long term (current) use of oral hypoglycemic drugs; Z79.01 Long term (current) use of anticoagulants; Z79.899 Other long term (current) drug therapy
CPT/HCPCS: 71045; 71275; 80048; 80053; 82550; 82962 ×2; 83690; 83880; 84484; 85025 ×2; 85379; 93005; 96361; 96372; 96374; 96375; 99285; G0378 ×3; 36415; 36416; 96360; J1200; J1650; J1885; Q0163

== ENCOUNTER 2018-11-19 11:30 | Emergency (ER) | payer MEDICARE, MEDICAID ==
[2018-11-19 12:23] LABS: #Basophils 0.1 thou/uL (0.0-0.2); #Eosinphils 0.5 thou/uL (0.0-0.7); #Lymphocytes 1.9 thou/uL (1.20-3.40); #Monocytes 0.6 thou/uL (0.11-0.59); #Neutrophils 5.6 thou/uL (1.40-6.50); %Basophils 0.8 % (0.0-1.0); %Eosinophils 5.3 % (0.0-10.0); %Monocytes 6.6 % (0.0-10.0); %Neutrophils 65.3 % (42.0-75.0); Hemoglobin 14.6 g/dL (14.0-18.0); Mean Corpuscular HGB CONC 32.3 g/dL (32.0-36.0); Mean Corpuscular Hemoglobin 26.7 pg (27.0-31.0); Mean Corpuscular Volume 82.5 fL (78.0-98.0); Mean Platelet Volume 7.6 fL (7.4-10.4); Platelet Count 284 thou/uL (130-400); RBC Distribution Width 14.4 % (11.5-14.5); Red Blood Cell (RBC) Count 5.49 mill/uL (4.70-6.10); White Blood Cell (WBC) Count 8.6 thou/uL (4.8-10.8)
[2018-11-19 12:47] LABS: ALT (SGPT) 33 U/L (8-55); AST (SGOT) 22 U/L (5-34); Albumin 4.3 g/dL (3.5-5.0); Alkaline Phosphatase 112 U/L (40-150); Anion Gap 15 mmol/L (10-20); BUN (Urea Nitrogen) 24 mg/dL (8.4-25.7); Bilirubin, Total 0.4 mg/dL (0.2-1.2); CK (CPK) 158 U/L (30-200); Calc. Creatinine Clearance 0 mL/min (70-130); Calcium 9.9 mg/dL (7.8-10.44); Carbon Dioxide 22 mmol/L (22-29); Chloride 104 mmol/L (98-107); Estimated GFR-MDRD 45; Globulin 3.3 g/dL (2.4-3.5); Glucose 183 mg/dL (70-105); Lipase 44 U/L (8-78); Potassium 4.3 mmol/L (3.5-5.1); Protein, Total 7.6 g/dL (6.0-8.3); Sodium 137 mmol/L (136-145)
--- NOTE | 2018-11-19 14:35 | RAD ---
PORTABLE UPRIGHT FRONTAL CHEST: Date: 11/19/18 COMPARISON: 09/23/18. HISTORY: Chest pain for a month. FINDINGS: Midline sternotomy wires are present, unchanged. Mild pulmonary hyperinflation, stable. Stable incre ased linear interstitial density. No pneumothorax or pleural fluid. No focal consolidation or alveola r edema. IMPRESSION: Stable appearance of the chest. No acute findings. POS: TPC
--- NOTE | 2018-11-19 14:53 | CT ---
Exam: CT angiogram of the chest HISTORY: Chest pain. COMPARISON: 09/23/2018 TECHNIQUE: CT angiogram of the chest is performed in the axial plane. Three-dimensional reformatted i mages are submitted for interpretation FINDINGS: Mediastinum: No mass, lymphadenopathy or hematoma. HEART: Normal size. No significant pericardial fluid. Aorta: Grossly no abnormality. Limited evaluation due to lack of adequate contrast opacification. Upper solid abdominal viscera: No abnormality enhancement. Trachea and central bronchi: Patent Pleural spaces: No effusion Lung parenchyma: Dependent atelectatic changes. No masses or consolidation. Pneumothorax: None Osseous structures: No lytic or blastic lesions Pulmonary arteries: Adequate contrast opacification pulmonary arterial system to the level of segment al arteries. No filling defect to suggest pulmonary embolism IMPRESSION: 1. No evidence of pulmonary artery embolism to the level of the segmental arteries.
[2018-11-19] MEDS ORDERED: diphenhydrAMINE 50 MG/ML VIAL ONE (15:04)
[2018-11-19 15:54] LABS: Troponin I Less than 0.010 ng/mL (< 0.028)
[2018-11-19] MEDS ORDERED: ISOVUE-370 76%-LOCM 1 ML ONE (16:17)
--- NOTE | 2018-11-21 15:22 | EKG ---
Test Reason : Blood Pressure : / mmHG Vent. Rate : 103 BPM Atrial Rate : 103 BPM P-R Int : 190 ms QRS Dur : 096 ms QT Int : 348 ms P-R-T Axes : 062 013 047 degrees QTc Int : 455 ms Sinus tachycardia with occasional Premature ventricular complexes Possible Left atrial enlargement Inferior infarct , age undetermined Abnormal ECG Confirmed by CAROL BERGER DO ([id number]), supervising editor trailer BOB NASCIMENTO ([id number]) on 11/21/2018 3:21:47 PM Referred By: Confirmed By:CAROL BERGER DO
--- NOTE | 2018-11-21 15:23 | EKG ---
Test Reason : CHEST PAIN Blood Pressure : / mmHG Vent. Rate : 093 BPM Atrial Rate : 093 BPM P-R Int : 188 ms QRS Dur : 096 ms QT Int : 372 ms P-R-T Axes : 063 -02 065 degrees QTc Int : 462 ms Sinus rhythm with occasional Premature ventricular complexes Possible Left atrial enlargement Otherwise normal EKG Confirmed by CAROL BERGER DO ([id number]), restaurant expeditor BOB NASCIMENTO ([id number]) on 11/21/2018 3:23:14 PM Referred By: AB Confirmed By:CAROL BERGER DO
== END 2018-11-19 16:17 | disposition home or self-care (01) ==
LOC: ERS 11:30
DX: R07.89 Other chest pain (principal); E11.9 Type 2 diabetes mellitus without complications; I25.10 Atherosclerotic heart disease of native coronary artery without angina pectoris; E78.5 Hyperlipidemia, unspecified; Z79.891 Long term (current) use of opiate analgesic; Z79.899 Other long term (current) drug therapy; Z79.82 Long term (current) use of aspirin
CPT/HCPCS: 36415; 71045; 71275; 80053; 82550; 83690; 84484; 85025; 93005; 96374; J1200; Q9966

== ENCOUNTER 2022-05-29 08:55 | Outpatient (CLI) | payer OTHER | END 2022-05-29 08:56 | disposition home or self-care (01) | LOC: BICULT 08:55 | PROVIDERS: ATTEND Nurse Practitioner Family | DX: R79.89 Other specified abnormal findings of blood chemistry (principal) | CPT/HCPCS: 76705 ==